=== PATIENT | female | born 1955 | race Caucasian/White ===

== ENCOUNTER → 2019-04-17 10:02 | Outpatient (CLI) | payer MEDICARE, SELFPAY ==
--- NOTE | 2019-04-17 | DI.MRI.S_ITS ---
PROCEDURE: MR LUMBAR SPINE WO CON INDICATIONS: Polyneuropathy, unspecified TECHNIQUE: Noncontrast sagittal T1 spin echo and T2 fast echo, sagittal STIR, axial T1 and T2 fast spin echo through the lumbar spine. In cases with scoliosis, additional coronal T2 fast spin echo may be performed. COMPARISON: None. FINDINGS: Image quality: Excellent. Alignment and Curvature: There is grade 1 anterolisthesis of L5 on S1. Bone Marrow: Marrow is of normal overall signal. No acute vertebral body compression fractures. Spinal Cord: Conus medullaris terminates at the L1-L2 level. Visualized cord demonstrates normal signal and size. Paraspinous Soft Tissues: No paravertebral masses. L1-L2: Preserved disc height. Mild disc desiccation. No central canal or foraminal stenosis. No definitive nerve root impingement. L2-L3: Preserved disc height. Mild disc desiccation and posterior lateral disc bulge. No central canal stenosis. Mild bilateral foraminal stenosis No definitive nerve root impingement. L3-L4: Preserved disc height. Mild disc desiccation and posterior lateral disc bulge. No central canal stenosis. Mild bilateral foraminal stenosis No definitive nerve root impingement. L4-L5: Preserved disc height. Mild disc desiccation and posterior lateral disc bulge. Moderate bilateral facet arthropathy. No central canal stenosis. Mild left foraminal stenosis. Patent right neural foramen. No definitive nerve root impingement. L5-S1: Preserved disc height. Mild disc desiccation. Diffuse posterior disc bulge. There is a small posterior central annular fissure. Mild bilateral facet arthropathy. No central canal stenosis. Mild bilateral foraminal stenosis No definitive nerve root impingement. IMPRESSION: 1. Multilevel degenerative disc disease and facet arthropathy as described. 2. No central canal stenosis. 3. Mild foraminal stenosis at several levels as described. Dictated by: Xiomara Jurado M.D. on 04/19/2019 at 10:33 Approved by: Xiomara Jurado M.D. on 04/19/2019 at 18:51
== END ==
PROVIDERS: Visit Provider Physician Assistant
DX: M51.36 Other intervertebral disc degeneration, lumbar region (principal); M51.37 Other intervertebral disc degeneration, lumbosacral region; M47.817 Spondylosis without myelopathy or radiculopathy, lumbosacral region; M48.061 Spinal stenosis, lumbar region without neurogenic claudication; M48.07 Spinal stenosis, lumbosacral region; M47.816 Spondylosis without myelopathy or radiculopathy, lumbar region; G62.9 Polyneuropathy, unspecified; M79.18 Myalgia, other site; R20.2 Paresthesia of skin
CPT/HCPCS: 72148

== ENCOUNTER → 2019-05-28 10:23 | Outpatient (CLI) | payer MEDICARE, MEDICAID, SELFPAY ==
--- NOTE | 2019-05-28 | DI.US.S_ITS ---
PROCEDURE: US PERIPH VENOUS LOW EXTREM RT INDICATIONS: RIGHT LEG PAIN TECHNIQUE: Real-time imaging, as well as color and pulse Doppler interrogation, were performed of the lower extremity deep veins from the inguinal ligament to the popliteal fossa. COMPARISON: None. FINDINGS: The common femoral, femoral and popliteal veins are normally compressible, and free of intraluminal thrombus. Color and pulse Doppler demonstrate normal phasic intraluminal flow. There is normal augmentation response to distal compression maneuver. IMPRESSION: No evidence of right lower extremity deep vein thrombosis. Dictated by: Donnie Dobbs M.D. on 05/28/2019 at 11:33 Approved by: Donnie Dobbs M.D. on 05/28/2019 at 11:33
== END ==
PROVIDERS: Visit Provider Student in an Organized Health Care Education/Training Program
DX: M79.604 Pain in right leg (principal)
CPT/HCPCS: 93971

== ENCOUNTER → 2019-05-31 14:31 | Outpatient (CLI) | payer MEDICARE, MEDICAID, SELFPAY ==
--- NOTE | 2019-05-31 | DI.US.S_ITS ---
PROCEDURE: US ARTERIAL DUPLEX LE BI INDICATIONS: RIGHT LEG PAIN TECHNIQUE: Color and pulse Doppler interrogation was performed of both lower extremity arterial systems, with image documentation. COMPARISON: None. FINDINGS: Right lower extremity: Common femoral artery: 84 cm/sec, with monophasic low resistance waveforms. Deep femoral artery: 156 cm/sec, with monophasic low resistance flow. Proximal superficial femoral artery: 73 cm/sec, with monophasic low resistance flow. Mid superficial femoral artery: 70 cm/sec, with monophasic low resistance flow. Distal superficial femoral artery: 29 cm/sec, with tardus parvus flow. Popliteal artery: 29-33 cm/sec, with tardus parvus flow. Posterior tibial artery: 17 cm/sec and 8 cm/s distally, with tardus parvus flow in the mid and distal segments. Anterior tibial artery/dorsalis pedis: 28 cm/s proximally and 4 cm/s distally cm/sec, with tardus parvus flow in the mid segment and minimal phasicity distally. Dorsalis pedis: 7 cm/s with tardus parvus flow. Melissa-scale imaging description: There is extensive atherosclerotic plaque. Left lower extremity: Common femoral artery: 63 cm/sec, with monophasic low resistance flow. Deep femoral artery: 109 cm/sec, with monophasic low resistance flow. Proximal superficial femoral artery: 55 cm/sec, with monophasic low resistance flow. Mid superficial femoral artery: 61 cm/sec, with monophasic low resistance flow. Distal superficial femoral artery: 138 cm/sec, with monophasic low resistance flow. Popliteal artery: 39 cm/sec, with tardus parvus flow. Posterior tibial artery: 18 cm/sec proximally and 16 cm/s distally, with tardus parvus flow. Anterior tibial artery/dorsalis pedis: 20 cm/s proximally with tardus parvus flow, 6 cm/s at its proximal mid segment, and no flow visualized distally. Dorsalis pedis: No flow visualized. Melissa-scale imaging description: There is scattered atherosclerotic plaque. IMPRESSION: 1. Bilateral low velocity low resistance monophasic flow demonstrated in the lower extremities compatible with inflow disease in the iliac arteries. 2. Focal increased velocity within the distal left superficial femoral artery compatible with a high-grade stenosis. 3. 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 4. Bilateral post stenotic waveforms demonstrated beginning in the distal right superficial femoral artery and in the left popliteal artery. Dictated by: Elliot Choudhury M.D. on 05/31/2019 at 18:10 Approved by: Elliot Choudhury M.D. on 05/31/2019 at 18:23
== END ==
PROVIDERS: Visit Provider Student in an Organized Health Care Education/Training Program
DX: M79.604 Pain in right leg (principal); I70.203 Unspecified atherosclerosis of native arteries of extremities, bilateral legs
CPT/HCPCS: 93925

== ENCOUNTER 2019-10-06 19:52 | Emergency (ER) | payer MEDICARE, MEDICAID, SELFPAY ==
--- NOTE | 2019-10-06 19:58 | ED.ABDPAIN ---
HPI - Abdominal Pain General Chief Complaint: Abdominal Pain Stated Complaint: Abd pain, n/v Time Seen by Provider: 10/06/19 19:58 Source: patient, family and EMS Mode of arrival: EMS Limitations: no limitations History of Present Illness HPI narrative: This is a 64-year-old female comes to the emergency department with complaint of epigastric mid abdominal pain starting at 2:00 a.m. today. Patient states it's been intermittent. She states it doesn't seem to be associated with anything in particular but she has had multiple episodes of emesis initially water followed by what she describes as bile and yellow in color. She has also had about 5 or 6 episodes of diarrhea. Patient denies any radiation to her back. She denies any lower abdominal discomfort. Patient has not had any fevers. She has had a dry cough for about 1 month status post CEA. Patient also had an aortic iliac bypass in June. And at that time during her evaluation was found she had stenosis of her carotid and had that surgery in August. Patient felt like something was maybe ripping or tearing. She states the pain has resolved since. She did receive Zofran EN route with EMS but no additional medication. She denies any urinary symptoms no frequency, dysuria urgency. She denies any shortness of breath. She states her cough has not been productive. She has a history of hypertension, dyslipidemia, diabetes on metformin and glipizide.retinal stroke,no prior MIs or cardiac history. Patient was on Plavix this was stopped 1 week ago by her surgeon. Related Data Allergies Allergy/AdvReac Type Severity Reaction Status Date / Time No Known Drug Allergies Allergy Verified 10/06/19 20:47 Review of Systems Review of Systems ROS Unobtainable: All systems reviewed & are unremarkable except as noted in HPI and below Patient History Social History Smoking Status: Former smoker (Quit 7 years ago) Smoking Status: Former smoker (Quit 7 years ago) Substance Use Type: does not use Exam Narrative Exam Narrative: GENERAL: Alert and oriented x three, well-nourished female in mild distress. HEENT: Head normocephalic, atraumatic, EOMI, pupils reactive, face symmetric, moist mucous membranes NECK: Supple, full range of motion, patient has healing incision on the left neck consistent with prior left carotid endarterectomy. Is clean and dry and intact without any signs of dehiscence or infection. CARDIOVASCULAR: Regular rate and rhythm without murmurs, rubs or gallops. RESPIRATORY: Breath sounds equal bilaterally, no wheezes rales or rhonchi. ABDOMEN: Soft, nontender to palpation. Normoactive bowel sounds all 4 quadrants. No guarding or rebound, rigidity, no mass. Patient has midline incision running through the umbilicus. Appears to have healed appropriately. Patient does have some hardening of the tissue around umbilicus which feels consistent with scar tissue. It is nontender to touch. : No CVA tenderness EXTREMITIES: Normal range of motion, no clubbing or edema. Neurovascularly intact NEUROLOGICAL: Cranial nerves II through XII grossly intact. Moving all extremities SKIN: Warm, dry, no petechiae, no rashes or lesions. Initial Vital Signs Initial Vital Signs: Vital Signs Temperature 98.5 F 10/06/19 20:00 Pulse Rate 81 10/06/19 20:00 Respiratory Rate 15 10/06/19 20:00 Blood Pressure 139/78 10/06/19 20:00 Pulse Oximetry 100 10/06/19 20:00 Course Orders Ordered: ED Orders 10/06/19 20:11 CT angio chest abdomen pelvis Stat 10/06/19 20:15 EKG-12 Lead Stat 10/06/19 20:17 Complete Blood Count AUTO DIFF Stat Comprehensive Metabolic Panel Stat Lipase Stat Troponin & CK Cardiac Panel Stat Type and Screen Stat Discontinued Medications Hydrocodone Bitart/Acetaminophen (Vicodin 5/325 Prepack) 1 bottle MISC SEEINSTR ONE Stop: 10/06/19 22:42 Last Admin: 10/06/19 22:57 Dose: 1 bottle Documented by: DEMOND Sodium Chloride (Normal Saline 0.9%) 1,000 mls @ 150 mls/hr IV CONT JEWELL Last Infusion: 10/06/19 23:34 Dose: 0 mls/hr Documented by: Admin: 10/06/19 20:24 Dose: 150 mls/hr Documented by: BRODY Ondansetron HCl (Zofran) 4 mg IV NOW ONE Stop: 10/06/19 20:43 Last Admin: 10/06/19 20:46 Dose: 4 mg Documented by: DEMOND Ondansetron HCl (Zofran Odt Prepack) 1 bottle MISC SEEINSTR ONE Stop: 10/06/19 22:42 Last Admin: 10/06/19 22:57 Dose: 1 bottle Documented by: DEMOND Vital Signs Vital signs: Vital Signs - 8 hr 10/06/19 20:00 10/06/19 21:17 10/06/19 22:07 Temperature 98.5 F Pulse Rate 81 93 H 92 H Respiratory Rate 15 19 18 Blood Pressure 139/78 Blood Pressure [Right Arm] 146/60 H 151/74 H Pulse Oximetry 100 97 92 10/06/19 22:56 Temperature Pulse Rate 98 H Respiratory Rate 18 Blood Pressure Blood Pressure [Right Arm] 142/60 H Pulse Oximetry 94 MDM - Abdominal Pain Lab Data Attestation: I reviewed the patient's lab results. Result diagrams: 10/06/19 20:17 10/06/19 20:17 Labs: Lab Results 10/06/19 10/06/19 10/06/19 Range/Units 20:17 20:17 20:17 WBC 14.7 H (4.5-11.0) X10^3/uL RBC 4.75 (4.0-5.2) X10^6/uL Hgb 13.0 (12.0-16.0) g/dL Hct 39.3 (36-46) % MCV 82.7 (80-100) fL MCH 27.4 (26-34) PG MCHC 33.1 (30-36) % RDW 15.3 H (11.6-14.8) % Plt Count 301 (150-400) X10^3/uL Neut % (Auto) 93.2 H (50-75) % Lymph % (Auto) 3.4 L (25-40) % [place] % (Auto) 3.1 (3-14) % Eos % (Auto) 0.1 L (2-4) % Baso % (Auto) 0.2 (0-2) % Neut # (Auto) 98375 H (8333-7749) /uL Lymph # (Auto) 500 L (2009-4786) /uL [place] # (Auto) 500 (0-900) /uL Eos # (Auto) 0 (0-450) /uL Baso # (Auto) 0 (0-100) /uL Sodium (137-145) mmol/L Potassium (3.4-5.1) mmol/L Chloride (98-107) mmol/L Carbon Dioxide (22-32) mmol/L BUN (7-17) mg/dL Creatinine (0.52-1.04) mg/dL Estimated GFR (>60) mL/min BUN/Creatinine Ratio (6-22) Glucose (80-110) mg/dL Calcium (8.4-10.2) mg/dL Total Bilirubin (0.2-1.3) mg/dL AST (14-36) IU/L ALT (<35) IU/L Alkaline Phosphatase (38-126) U/L Total Creatine Kinase 62 (30-135) U/L CK-MB (CK-2) TNP CK-MB (CK-2) Rel Index TNP Troponin I < 0.012 (0.01-0.034) ng/mL Total Protein (6.3-8.2) g/dL Albumin (3.5-5.0) g/dL Globulin (1.7-4.1) g/dL Albumin/Globulin Ratio (1.0-2.8) Lipase (23-300) U/L Blood Type O Positive Antibody Screen Negative 10/06/19 Range/Units 20:17 WBC (4.5-11.0) X10^3/uL RBC (4.0-5.2) X10^6/uL Hgb (12.0-16.0) g/dL Hct (36-46) % MCV (80-100) fL MCH (26-34) PG MCHC (30-36) % RDW (11.6-14.8) % Plt Count (150-400) X10^3/uL Neut % (Auto) (50-75) % Lymph % (Auto) (25-40) % [place] % (Auto) (3-14) % Eos % (Auto) (2-4) % Baso % (Auto) (0-2) % Neut # (Auto) (7194-3684) /uL Lymph # (Auto) (5679-0931) /uL [place] # (Auto) (0-900) /uL Eos # (Auto) (0-450) /uL Baso # (Auto) (0-100) /uL Sodium 137 (137-145) mmol/L Potassium 4.8 (3.4-5.1) mmol/L Chloride 97 L (98-107) mmol/L Carbon Dioxide 27 (22-32) mmol/L BUN 28 H (7-17) mg/dL Creatinine 0.70 (0.52-1.04) mg/dL Estimated GFR > 60.0 (>60) mL/min BUN/Creatinine Ratio 40.0 H (6-22) Glucose 280 H (80-110) mg/dL Calcium 10.1 (8.4-10.2) mg/dL Total Bilirubin 0.7 (0.2-1.3) mg/dL AST 25 (14-36) IU/L ALT 21 (<35) IU/L Alkaline Phosphatase 110 (38-126) U/L Total Creatine Kinase (30-135) U/L CK-MB (CK-2) CK-MB (CK-2) Rel Index Troponin I (0.01-0.034) ng/mL Total Protein 7.8 (6.3-8.2) g/dL Albumin 4.5 (3.5-5.0) g/dL Globulin 3.3 (1.7-4.1) g/dL Albumin/Globulin Ratio 1.4 (1.0-2.8) Lipase 60 (23-300) U/L Blood Type Antibody Screen Point of care testing: Urine Dip Bedside Urine Glucose 250 mg/dl Bedside Urine Bilirubin - Negative Bedside Urine Ketone + 15 Urine Specific [place] 1.015 Bedside Urine pH 6.0 Bedside Urine Protein +/- 15 Bedside Urine Urobilinogen - Negative Bedside Urine Nitrite - Negative Bedside Urine Leukocytes - Negative Esterase Imaging Data CT scan - abdomen/pelvis: Radiologist's Impression: [place] [address] CT Scan Report Signed Patient: Tarah Randolph#: [id number] : 3Acct:[id number] Age/Sex: 64 / FDate of Service: 10/06/19 Loc: ED Accession Number: [id number] Procedure: CT angio chest abdomen pelvis Ordering Provider: Thea Zimmer D.O. PROCEDURE: CT ANGIO CHEST ABDOMEN PELVIS INDICATIONS: epigastric/abd pain, v/d, had aortoilliac bypass Oct TECHNIQUE: Precontrast 5 mm thick sections acquired from the lung apices to the iliac crests. After the administration of intravenous contrast, 2.5 mm thick sections again acquired from the lung apices to the iliac crests. Maximum intensity projection (MIP) oblique sagittal and coronal reformats were then acquired. For radiation dose reduction, the following was used: automated exposure control. COMPARISON: None. FINDINGS: Image quality: Excellent. AORTA: Patient is status post prior aorta iliac bypass graft placement. There is occlusion of the [place] infrarenal abdominal aorta with patent aortobiiliac stent. Mild to moderate amount of atherosclerotic calcifications are noted in thoracic and abdominal aorta. There is no thoracic or upper abdominal aortic aneurysm or dissection. No contrast extravasation is seen. Normal contrast opacification of bilateral external iliac arteries and femoral arteries are seen. CHEST: Lungs and pleura: No acute airspace opacities. No pleural effusions or pneumothorax. Central and peripheral airways are patent and normal in caliber. Mediastinum: Heart size is enlarged. No pericardial effusion. No mediastinal or hilar adenopathy by size criteria. Central pulmonary arteries are normal in size. Esophagus is normal in caliber. There is a small hiatal hernias. Bones and chest wall: No axillary adenopathy by size criteria. Thyroid gland is within normal limits. No suspicious bony lesions. No vertebral body compression fractures. ABDOMEN: Vasculature: Celiac trunk and mesenteric arteries are patent. Renal arteries are also patent. Solid organs: Liver is normal in size and enhancement. Gallbladder is within normal limits. Biliary system is non dilated. Pancreas enhances normally. Spleen is normal in size and enhancement. No adrenal nodules. Both kidneys are normal in size and enhancement, without hydronephrosis. Anterior cortical thinning in upper to midpole right kidney is seen likely represent prior infarction or injury. Peritoneum and bowel: No free fluid or air. There is no bowel obstruction. Mild proximal to mid small bowel wall thickening is noted. Distal small bowel loops and colonic loops are normal in wall thickness. Nodes and vessels: No retroperitoneal or mesenteric adenopathy by size criteria. Inferior vena cava is normal in morphology. Miscellaneous: No ventral hernias. PELVIS: Genitourinary: Bladder wall thickness is normal. Miscellaneous: No inguinal hernias or adenopathy. No ventral hernias. Bones: No suspicious bony lesions. No vertebral body compression fractures. Degenerative disc disease throughout thoracic and lumbar spine is seen. IMPRESSION: 1. Patient is status post aortoiliac bypass graft placement with occlusion of [place] mid to distal abdominal aorta and patent aortoiliac graft. No aortic aneurysm or dissection. Moderate amount of atherosclerotic calcifications throughout thoracic and abdominal aorta is seen. No hemodynamically significant stenosis are noted in celiac axis, superior and inferior mesenteric arteries and bilateral renal arteries. 2. Bilateral lungs are clear. 3. Wall thickening involving proximal to mid small bowel loops which may represent infectious or inflammatory enteritis. No bowel obstruction. No free fluid or free air. Dictated by: Maksim Murphy M.D. on 10/06/2019 at 21:32 Approved by: Maksim Murphy M.D. on 10/06/2019 at 21:47 ECG Data Attestation: I personally reviewed and interpreted this ECG as follows: Prior ECG tracings: not available for review Interpretation: Sinus rhythm rate of 76 P are 143 QRS 89 and QTC of 426. No ST changes appreciated. Patient has no prior EKG available for comparison. MDM Narrative Medical decision making narrative: Patient has a leukocytosis of 14.7, with left shift. Chemistry shows chloride 97, BUN of 28 and a glucose of 280, troponin is negative. Abdominal labs are normal. CT angiography shows wall thickening of proximal to mid small bowel which could be infectious or inflammatory enteritis with no signs of bowel obstruction and no free fluid or air. Patient has aortic iliac bypass graft placement and patent graft. No aneurysm or dissection noted. Patient has moderate amount of calcification throughout. No hemodynamically significant stenosis noted. Patient had a 2nd dose of Zofran in the department but otherwise has been doing well. Discussed findings today. Patient is feeling much better she has not had any further diarrhea or vomiting in the department. We did discuss sending home with a short course of narcotic pain medication if needed as well as Zofran. And strict return precautions. Patient did give a urine, shows glucose, ketones and protein. Anion gap is 13 with no signs of DKA or HONC. Patient comfortable with the plan and feeling much better. Discharge Plan Departure Patient Disposition: Home Clinical Impression: Enteritis Discharge Date/Time: 10/06/19 23:35 Instructions: DI for Enteritis Activity Restrictions/Additional Instructions: Follow up with your primary care physician in the next 2-3 days for recheck. Your imaging shows thickening of the small bowel or enteritis. You may take tylenol instead of but not with pain medication. Take pain medication as prescribed, this medication can make you nauseated so I would recommend taking Zofran 1 tablet 20 minutes prior to pain medication. Pain medication can make you sleepy do not drive, perform hazardous activities or make any major decisions while taking this medication. Return to the ER for fevers greater 100.4 F, rapidly worsening pain, persistent vomiting, lightheadedness or passing-out, black or bloody stools or other new or concerning symptoms.
[2019-10-06 20:00] VITALS: BP 139/78; PULSE 81; RESP 15; TEMP 36.9; O2SAT 100; BMI 25.7
--- NOTE | 2019-10-06 20:11 | DI.CT.S_ITS ---
PROCEDURE: CT ANGIO CHEST ABDOMEN PELVIS INDICATIONS: epigastric/abd pain, v/d, had aortoilliac bypass Oct TECHNIQUE: Precontrast 5 mm thick sections acquired from the lung apices to the iliac crests. After the administration of intravenous contrast, 2.5 mm thick sections again acquired from the lung apices to the iliac crests. Maximum intensity projection (MIP) oblique sagittal and coronal reformats were then acquired. For radiation dose reduction, the following was used: automated exposure control. COMPARISON: None. FINDINGS: Image quality: Excellent. AORTA: Patient is status post prior aorta iliac bypass graft placement. There is occlusion of the [place] infrarenal abdominal aorta with patent aortobiiliac stent. Mild to moderate amount of atherosclerotic calcifications are noted in thoracic and abdominal aorta. There is no thoracic or upper abdominal aortic aneurysm or dissection. No contrast extravasation is seen. Normal contrast opacification of bilateral external iliac arteries and femoral arteries are seen. CHEST: Lungs and pleura: No acute airspace opacities. No pleural effusions or pneumothorax. Central and peripheral airways are patent and normal in caliber. Mediastinum: Heart size is enlarged. No pericardial effusion. No mediastinal or hilar adenopathy by size criteria. Central pulmonary arteries are normal in size. Esophagus is normal in caliber. There is a small hiatal hernias. Bones and chest wall: No axillary adenopathy by size criteria. Thyroid gland is within normal limits. No suspicious bony lesions. No vertebral body compression fractures. ABDOMEN: Vasculature: Celiac trunk and mesenteric arteries are patent. Renal arteries are also patent. Solid organs: Liver is normal in size and enhancement. Gallbladder is within normal limits. Biliary system is non dilated. Pancreas enhances normally. Spleen is normal in size and enhancement. No adrenal nodules. Both kidneys are normal in size and enhancement, without hydronephrosis. Anterior cortical thinning in upper to midpole right kidney is seen likely represent prior infarction or injury. Peritoneum and bowel: No free fluid or air. There is no bowel obstruction. Mild proximal to mid small bowel wall thickening is noted. Distal small bowel loops and colonic loops are normal in wall thickness. Nodes and vessels: No retroperitoneal or mesenteric adenopathy by size criteria. Inferior vena cava is normal in morphology. Miscellaneous: No ventral hernias. PELVIS: Genitourinary: Bladder wall thickness is normal. Miscellaneous: No inguinal hernias or adenopathy. No ventral hernias. Bones: No suspicious bony lesions. No vertebral body compression fractures. Degenerative disc disease throughout thoracic and lumbar spine is seen. IMPRESSION: 1. Patient is status post aortoiliac bypass graft placement with occlusion of [place] mid to distal abdominal aorta and patent aortoiliac graft. No aortic aneurysm or dissection. Moderate amount of atherosclerotic calcifications throughout thoracic and abdominal aorta is seen. No hemodynamically significant stenosis are noted in celiac axis, superior and inferior mesenteric arteries and bilateral renal arteries. 2. Bilateral lungs are clear. 3. Wall thickening involving proximal to mid small bowel loops which may represent infectious or inflammatory enteritis. No bowel obstruction. No free fluid or free air. Dictated by: Maksim Murphy M.D. on 10/06/2019 at 21:32 Approved by: Maksim Murphy M.D. on 10/06/2019 at 21:47
[2019-10-06] MEDS: SODIUM CHLORIDE 0.9% 1,000 ML 150 ML IV (20:24)
[2019-10-06 20:26] LABS: Add Manual Diff / Slide Review NO; Basophils Absolute Auto 0 /uL (0-100); Basophils Percent Auto 0.2 % (0-2); Eosinophils Absolute Auto 0 /uL (0-450); Eosinophils Percent Auto 0.1 % (2-4); Hematocrit 39.3 % (36-46); Lymphocytes Absolute Auto 500 /uL (1100-4500); Lymphocytes Percent Auto 3.4 % (25-40); Mean Corpuscular HGB Conc 33.1 % (30-36); Mean Corpuscular Hemoglobin 27.4 PG (26-34); Mean Corpuscular Volume 82.7 fL (80-100); Monocytes Absolute Auto 500 /uL (0-900); Monocytes Percent Auto 3.1 % (3-14); Neutrophils Absolute Auto 13700 /uL (1500-7000); Neutrophils Percent Auto 93.2 % (50-75); Platelet Count 301 X10^3/uL (150-400); Red Blood Cell Count 4.75 X10^6/uL (4.0-5.2); Red Cell Distribution Width 15.3 % (11.6-14.8); White Blood Cell Count 14.7 X10^3/uL (4.5-11.0)
[2019-10-06 20:30] LABS: Creatine Kinase 62 U/L (30-135)
[2019-10-06 20:31] LABS: Alanine Aminotransferase 21 IU/L (<35); Albumin 4.5 g/dL (3.5-5.0); Albumin Globulin Ratio 1.4 (1.0-2.8); Alkaline Phosphatase 110 U/L (38-126); Aspartate Aminotransferase 25 IU/L (14-36); Bilirubin Total 0.7 mg/dL (0.2-1.3); Blood Urea Nitrogen 28 mg/dL (7-17); Calcium 10.1 mg/dL (8.4-10.2); Carbon Dioxide 27 mmol/L (22-32); Chloride 97 mmol/L (98-107); Estimated Glomerular Filt Rate > 60.0 mL/min (>60); Globulin 3.3 g/dL (1.7-4.1); Glucose 280 mg/dL (80-110); HEMOLYSIS 18 (0-50); Lipase 60 U/L (23-300); Potassium 4.8 mmol/L (3.4-5.1); Sodium 137 mmol/L (137-145); Total Protein 7.8 g/dL (6.3-8.2)
[2019-10-06 20:43] LABS: Troponin I < 0.012 ng/mL (0.01-0.034)
[2019-10-06] MEDS: ONDANSETRON 4 MG/2 ML INJ IV (20:46)
[2019-10-06 21:17] VITALS: BP 146/60; PULSE 93; RESP 19; O2SAT 97
[2019-10-06 22:07] VITALS: BP 151/74; PULSE 92; RESP 18; O2SAT 92
[2019-10-06 22:56] VITALS: BP 142/60; PULSE 98; RESP 18; O2SAT 94
[2019-10-06] MEDS: ONDANSETRON 4 MG ODT PREPACK 1 BOTTLE MISC (22:57)
[2019-10-06] MEDS: HYDROCODONE/ACET 5/325 PREPACK 1 BOTTLE MISC (22:57)
== END 2019-10-06 23:35 | disposition home or self-care (01) ==
PROVIDERS: Emergency Provider Emergency Medicine
DX: K52.9 Noninfective gastroenteritis and colitis, unspecified (principal); R10.13 Epigastric pain
CPT/HCPCS: 36415; 71275; 74174; 80053; 81003; 82550; 83690; 84484; 85025; 86850; 86900; 86901; 93005; 96361; 96374; 99284; 99285; J2405; Q9967

== ENCOUNTER 2025-04-01 21:59 | Inpatient (IN) | payer MEDICARE, MEDICAID, SELFPAY ==
[2025-04-01] VITALS (8 sets, daily range): BP systolic 138–225; BP diastolic 87–106; PULSE 102–118; RESP 16–46; TEMP 36.4; O2SAT 96–99
--- NOTE | 2025-04-01 | DI.CT.S_ITS ---
PROCEDURE: CT STROKE INDICATIONS: sTROKE LIKE SYMPTOMS TECHNIQUE: Noncontrast 4.5 mm thick angled axial sections acquired from the foramen magnum to the vertex, with coronal reformats. For radiation dose reduction, the following was used: automated exposure control, adjustment of mA and/or kV according to patient size. COMPARISON: None. FINDINGS: Image quality: Diagnostic. CSF spaces: Basal cisterns are patent. No extra-axial fluid collections. The ventricles are symmetric in size and shape. Brain: 3 mm linear hyperdensity along the anterior falx. No priors. It is seen on series 2, image 28. . There is cerebral volume loss, with resultant ventricular and sulcal prominence. There are periventricular and deep white matter chronic small vessel ischemic changes. There is intracranial internal carotid artery atherosclerosis. Skull and face: Calvarium and visualized facial bones appear intact, without suspicious lesions. Sinuses: Visualized sinuses and mastoids are clear. IMPRESSION: 3 mm hyperdensity along the anterior falx as above. This could represent calcification. It is too small to definitively characterize as hemorrhage versus calcification. 4 hour interval follow-up may be obtained as indicated. The above findings were discussed with Dr. Larry Segundo on 04/01/2025 at 10:16 p.m.. This study fulfills neurological imaging criteria for inclusion or exclusion of acute stroke therapies based on available published neurological guidelines. Dictated by: Anum Yusuf M.D. on 04/01/2025 at 22:14 Approved by: Anum Yusuf M.D. on 04/01/2025 at 22:17
--- NOTE | 2025-04-01 | DI.CT.S_ITS ---
PROCEDURE: CT ANGIO HEAD AND NECK INDICATIONS: sTROKE LIKE SYMPTOMS TECHNIQUE: After the administration of intravenous contrast, 1 mm thick sections acquired from the aortic arch through the [place] of [place]. 3-dimensional fponuzk-uznvbudta-fqqzxkigef (MIP) and/or volume rendering reformats were acquired of the central intracranial vasculature and neck separately. For radiation dose reduction, the following was used: automated exposure control, adjustment of mA and/or kV according to patient size. COMPARISON: [facility], CT, CT STROKE, 04/01/2025, 22:04. FINDINGS: Image quality: Motion is present multiple portions the. Cerebral CT Angiogram: Internal carotid arteries: No acute findings. Intracranial ICA are patent with no significant stenosis. No occlusion. No aneurysm. Anterior cerebral arteries: Unremarkable. No significant stenosis. No occlusion. No aneurysm. Middle cerebral arteries: Unremarkable. No significant stenosis. No occlusion. No aneurysm. Posterior cerebral arteries: Unremarkable. No significant stenosis. No occlusion. No aneurysm. Basilar artery: Unremarkable. No significant stenosis. No occlusion. No aneurysm. Vertebral arteries: Unremarkable as visualized. Dural venous sinuses: Unremarkable given phase of enhancement. Other: Arterial phase appearance of the brain parenchyma is unremarkable. Neck CT Angiogram: Internal carotid arteries: Significantly limited secondary to motion. Common carotid arteries: Significantly limited secondary to motion. External carotid arteries: Significantly limited secondary to motion. Vertebral arteries: Significantly limited secondary to motion. Aortic Arch and Mediastinum: Partially visualized aortic arch unremarkable without evidence of aneurysm. Origins of the great vessels unremarkable. Other: Arterial phase soft tissues of the neck and chest are unremarkable. IMPRESSION: No significant intracranial arterial abnormality is seen. Significantly limited motion within the neck vasculature as described above. Areas of abnormality cannot be excluded. Any quantitative measurements of stenosis were performed using NASCET criteria. Dictated by: Anum Yusuf M.D. on 04/01/2025 at 22:44 Approved by: Anum Yusuf M.D. on 04/01/2025 at 22:47
--- NOTE | 2025-04-01 22:00 | ED.AMS ---
HPI - Altered Mental Status General Chief Complaint: Neuro Symptoms/Deficit Stated Complaint: code stroke History of Present Illness HPI narrative: 70-year-old female history of type 2 diabetes was walking earlier tonight with her when she fell into the bushes found to be hypertensive and tachycardic along with the elevated blood sugar in the 600- 700s with a lateral gaze to the right brought in via EMS with concerns for DKA versus stroke. Patient currently has altered mental status unable to obtain further information at this time. Related Data Allergies Allergy/AdvReac Type Severity Reaction Status Date / Time No Known Drug Allergies Allergy Verified 10/06/19 20:47 Review of Systems Review of Systems ROS Unobtainable: Unobtainable due to mental status/LOC Exam Narrative Exam Narrative: GENERAL: [70] year old patient appears stated age. Well-developed patient, in mild distress. HEAD: Atraumatic. Normocephalic. EYES: Pupils equal round and reactive. Extraocular motions intact. No scleral icterus. No injection or drainage. ENT: Nose without bleeding, purulent drainage. Throat without erythema, tonsillar hypertrophy or exudate. Airway patent. NECK: Trachea midline. Non tender CARDIOVASCULAR: Regular rate and rhythm without murmurs, gallops, or rubs. RESPIRATORY: Clear to auscultation. Breath sounds equal bilaterally. No wheezes, rales, or rhonchi. GASTROINTESTINAL: Abdomen soft, non-tender, nondistended. EXTREMITIES: No edema or joint tenderness. BACK: Nontender without deformity or crepitance. No flank tenderness. NEURO: AOx1. Patient had a lateral horizontal gaze with her eyes initially to the right with the neck rotate tilted to the right, spontaneous moving arms and legs in all direction. SKIN: No rash or erythema of visible areas Course Orders Ordered: ED Orders 04/01/25 22:30 Ketones (Beta-Hydroxybutyrate) Stat Venous Blood Gas STAT Sodium Chloride (Normal Saline 0.9%) 500 mls @ 1,000 mls/hr IV BOLUS ONE Stop: 04/01/25 22:59 Discontinued Medications Insulin Human Regular (Insulin Regular 100 Unit/Ml 3 Ml Vial) 10 unit IV NOW ONE Stop: 04/01/25 22:31 MDM - Altered Mental Status Lab Data Labs: Lab Results 04/01/25 Range/Units 22:15 POC Whole Bld Glucose > 500 H* (70-99) mg/dL Imaging Data CT scan - head: Radiologist's Impression: [address] [address] [address] Scan Report Signed Patient: Jenelle Randolph MR#: [id number] : 1955 Acct:[id number] Age/Sex: 70 / F Date of Service: 04/01/25 Loc: ED Accession Number: [id number] Procedure: CT Stroke Ordering Provider: Larry Segundo D.O. PROCEDURE: CT STROKE INDICATIONS: sTROKE LIKE SYMPTOMS TECHNIQUE: Noncontrast 4.5 mm thick angled axial sections acquired from the foramen magnum to the vertex, with coronal reformats. For radiation dose reduction, the following was used: automated exposure control, adjustment of mA and/or kV according to patient size. COMPARISON: None. FINDINGS: Image quality: Diagnostic. CSF spaces: Basal cisterns are patent. No extra-axial fluid collections. The ventricles are symmetric in size and shape. Brain: 3 mm linear hyperdensity along the anterior falx. No priors. It is seen on series 2, image 28. . There is cerebral volume loss, with resultant ventricular and sulcal prominence. There are periventricular and deep white matter chronic small vessel ischemic changes. There is intracranial internal carotid artery atherosclerosis. Skull and face: Calvarium and visualized facial bones appear intact, without suspicious lesions. Sinuses: Visualized sinuses and mastoids are clear. IMPRESSION: 3 mm hyperdensity along the anterior falx as above. This could represent calcification. It is too small to definitively characterize as hemorrhage versus calcification. 4 hour interval follow-up may be obtained as indicated. The above findings were discussed with Dr. Larry Segundo on 04/01/2025 at 10:[address] - cervical spine: Radiologist's Impression: [address] [address] [address] Scan Report Signed Patient: Jenelle Randolph MR#: [id number] : 1955 Acct:[id number] Age/Sex: 70 / F Date of Service: 04/01/25 Loc: ED Accession Number: [id number] Procedure: CT angio head and neck Ordering Provider: Lrary Segundo D.O. PROCEDURE: CT ANGIO HEAD AND NECK INDICATIONS: sTROKE LIKE SYMPTOMS TECHNIQUE: After the administration of intravenous contrast, 1 mm thick sections acquired from the aortic arch through the [place] of [place]. 3-dimensional zflhbpm-gzhaatlzz-gcveenmirw (MIP) and/or volume rendering reformats were acquired of the central intracranial vasculature and neck separately. For radiation dose reduction, the following was used: automated exposure control, adjustment of mA and/or kV according to patient size. COMPARISON: [facility], CT, CT STROKE, 04/01/2025, 22:04. FINDINGS: Image quality: Motion is present multiple portions the. Cerebral CT Angiogram: Internal carotid arteries: No acute findings. Intracranial ICA are patent with no significant stenosis. No occlusion. No aneurysm. Anterior cerebral arteries: Unremarkable. No significant stenosis. No occlusion. No aneurysm. Middle cerebral arteries: Unremarkable. No significant stenosis. No occlusion. No aneurysm. Posterior cerebral arteries: Unremarkable. No significant stenosis. No occlusion. No aneurysm. Basilar artery: Unremarkable. No significant stenosis. No occlusion. No aneurysm. Vertebral arteries: Unremarkable as visualized. Dural venous sinuses: Unremarkable given phase of enhancement. Other: Arterial phase appearance of the brain parenchyma is unremarkable. Neck CT Angiogram: Internal carotid arteries: Significantly limited secondary to motion. Common carotid arteries: Significantly limited secondary to motion. External carotid arteries: Significantly limited secondary to motion. Vertebral arteries: Significantly limited secondary to motion. Aortic Arch and Mediastinum: Partially visualized aortic arch unremarkable without evidence of aneurysm. Origins of the great vessels unremarkable. Other: Arterial phase soft tissues of the neck and chest are unremarkable. IMPRESSION: No significant intracranial arterial abnormality is seen. Significantly limited motion within the neck vasculature as described above. Areas of abnormality cannot be excluded. Any quantitative measurements of stenosis were performed using NASCET criteria. MDM Narrative Medical decision making narrative: All lab work, vital signs, nurse triage note, medication list, previous ER visits, and all imaging study reviewed. Initial head CT was read as 3 mm hyperdensity along the anterior falx as above. This could represent calcification. It is too small to definitively characterize as hemorrhage versus calcification. 4 hour interval follow up may be obtained as indicated. CT head without contrast repeated at 4:00 a.m. showed no acute intracranial abnormality. CT cervical spine showed multilevel spondylotic change of the cervical spine without acute traumatic injury. CTA head and neck showed no significant intracranial arterial abnormality. CT pelvis showed more motion artifact limiting the exam and unable to adequately evaluate left pelvis and femur but patient is moving both legs in all directions with no difficulty. Initial blood work shows sodium of 130 potassium 4.0 chloride 93 BUN and at 20 CO2 of 19 creatinine 0.87. Sugar of 737 and a lactic acid of 4.9 and on repeat 3.9. Patient received 3 L bolus of normal saline, along with 4 L of normal saline with 20 mEq of KCl, 10 units of insulin regular follow up by insulin drip at this time with repeat sugar of 354. Troponin less than 0.012 and on repeat 0.048. Case discussed with Dr. Cotto who has graciously accepted the patient for inpatient admission. Discharge Plan Departure Patient Disposition: Admitted As Inpatient Clinical Impression: DKA (diabetic ketoacidosis) Qualifiers: Diabetes mellitus type: type 2 Diabetes mellitus complication detail: without coma Qualified Code(s): E11.10 - Type 2 diabetes mellitus with ketoacidosis without coma
--- NOTE | 2025-04-01 22:30 | PC.NURSE ---
upon return from CT linens changed and pt place on a purewick, pt constantly moving about on the stretcher unable to lay still but denies any c/o
--- NOTE | 2025-04-01 22:37 | EKG_ITS ---
[address] [address] Test Date: 2025-04-01 Pat Name: Jenelle Randolph Department: [facility] Room: Gender: Female [employer]: VIGNESH : 1955 Requested By: Order Number: [id number] Reading MD: Larry Eastman MD Measurements Intervals [place] Rate: 105 P: 74 [place]: 162 QRS: 35 QRSD: 86 T: 76 QT: 398 QTc: 526 Interpretive Statements Sinus tachycardia Septal infarct , age undetermined Prolonged QT Electronically Signed On 04-02-2025 8:41:21 PDT by Larry Eastman MD
--- NOTE | 2025-04-01 22:37 | DI.RAD.S_ITS ---
PROCEDURE: XR CHEST 1V INDICATIONS: chest pain TECHNIQUE: One view of the chest was acquired. COMPARISON: CT, CT ANGIO CHEST PE, 07/12/2019, 2:22. FINDINGS: Surgical changes and devices: None. Lungs and pleura: Lungs are clear. No pleural effusions or pneumothorax. Mediastinum: Mediastinal contours appear normal. Heart size is enlarged. Bones and chest wall: No suspicious bony lesions. Overlying soft tissues appear unremarkable. IMPRESSION: No acute pulmonary process. Dictated by: Anum Yusuf M.D. on 04/02/2025 at 0:08 Approved by: Anum Yusuf M.D. on 04/02/2025 at 0:08
--- NOTE | 2025-04-01 22:38 | DI.CT.S_ITS ---
PROCEDURE: CT PEL WO CON INDICATIONS: fall/trauma TECHNIQUE: Noncontrast 3 mm axial sections acquired through the bony pelvis, with coronal and sagittal reformatting. COMPARISON: [facility], CT, CT ABDOMEN PELVIS WITH CONTRAST, 08/04/2024, 11:28. FINDINGS: Image quality: Fair. Motion artifact. Bones: No acute fracture identified. No suspicious osseous lesion. Soft tissues: Excreted contrast in the right ureter. The left kidney and ureter not seen. Aortoiliac bypass. Bladder is decompressed with Levine catheter. Anteverted uterus. Upper ventral abdominal wall hernia containing a portion of the transverse colon, (3/6). Fat containing umbilical hernia. IMPRESSION: Motion artifact limits sensitivity. Consider follow-up radiographs. 1. No acute fracture identified. 2. Small ventral abdominal wall hernia containing transverse colon. This report is concordant with the overnight preliminary interpretation. Dictated by: Fletcher See M.D. on 04/02/2025 at 8:12 Approved by: Fletcher See M.D. on 04/02/2025 at 8:18
[2025-04-01 22:44] LABS: Add Manual Diff / Slide Review NO; Hematocrit 45.2 % (36-46); Hemoglobin 15.2 g/dL (12.0-16.0); Lymphocytes Absolute Auto 1900 /uL (1100-4500); Mean Corpuscular HGB Conc 33.6 % (30-36); Mean Corpuscular Hemoglobin 28.3 PG (26-34); Mean Corpuscular Volume 84.4 fL (80-100); Platelet Count 273 X10^3/uL (150-400)
[2025-04-01] MEDS: SODIUM CHLORIDE 0.9% 1,000 ML 1000 ML IV ×2 (22:49→22:52)
[2025-04-01 22:54] LABS: Ketones (Beta-Hydroxybutyrate) 0.63 mmol/L (<0.27)
[2025-04-01 22:54] LABS: Base Excess VBG 0.4 mmol/L (0-4); HCO3 VBG 24 mmol/L (24-28); Oxygen Saturation VBG 86 % (70-75); PCO2 VBG 33.4 mmHg (45-50); PO2 VBG 48 mmHg (35-45); Total CO2 VBG 22 mmol/L (24-29); pH VBG 7.46 (7.33-7.43)
--- NOTE | 2025-04-01 22:59 | PC.NURSE ---
Spoke to son gave verbal update at this time.
[2025-04-01 23:03] LABS: Alanine Aminotransferase 25 IU/L (<35); Albumin 4.6 g/dL (3.5-5.0); Albumin Globulin Ratio 1.4 (1.0-2.8); Alkaline Phosphatase 215 U/L (38-126); Blood Urea Nitrogen 20 mg/dL (7-17); Calcium 9.5 mg/dL (8.4-10.2); Carbon Dioxide 19 mmol/L (22-32); Chloride 93 mmol/L (98-107); Creatine Kinase 54 U/L (30-135); Estimated Glomerular Filt Rate > 60 mL/min (>60); Globulin 3.4 g/dL (1.7-4.1); Lipase 56 U/L (23-300); Potassium 4.0 mmol/L (3.4-5.1); Sodium 130 mmol/L (137-145); Total Protein 8.0 g/dL (6.3-8.2)
[2025-04-01] MEDS: INSULIN REGULAR 100 UNIT/ML 3 ML VIAL 10 UNIT IV (23:06)
[2025-04-01] MEDS: ACETAMINOPHEN IV 1,000 MG/100 ML VIAL 400 MG IV (23:06)
[2025-04-01 23:15] LABS: Troponin I < 0.012 ng/mL (0.01-0.034)
[2025-04-01 23:20] LABS: Procalcitonin 0.077 ng/mL (<0.5)
[2025-04-01 23:24] LABS: Glucose 737 mg/dL (70-99); HEMOLYSIS 52 (0-50); Lactate (Lactic Acid) 4.9 mmol/L (0.7-2.1)
[2025-04-01] MEDS: ONDANSETRON 4 MG/2 ML INJ IV (23:24)
--- NOTE | 2025-04-01 23:24 | DI.CT.S_ITS ---
PROCEDURE: CT CERVICAL SPINE WO CON INDICATIONS: fall trauma TECHNIQUE: Noncontrast 3 mm thick sections acquired from the skull base to the T4 level. Sagittal and coronal reformats were then constructed. For radiation dose reduction, the following was used: automated exposure control, adjustment of mA and/or kV according to patient size. COMPARISON: [facility], CT, CT ANGIO HEAD AND NECK, 04/01/2025, 22:04. FINDINGS: Image quality: Fair. Bones: No fractures or dislocations. Mild to moderate degenerative changes. Visualized superior ribs are intact. Soft tissues: Prevertebral soft tissues are normal in thickness. No paravertebral hematomas. No apical pneumothoraces. Clips at the right neck. Arterial vascular calcifications. IMPRESSION: No fracture identified. This report is concordant with the overnight preliminary interpretation. Dictated by: Fletcher See M.D. on 04/02/2025 at 8:08 Approved by: Fletcher See M.D. on 04/02/2025 at 8:11
[2025-04-01] MEDS: INSULIN DRIP PREMIX 100 UNIT/100 ML PLAST..BAG 7.29 UNIT IV (23:35)
[2025-04-02] VITALS (44 sets, daily range): BP systolic 121–210; BP diastolic 66–105; PULSE 64–114; RESP 15–38; TEMP 36.1–37.2; O2SAT 95–100; BMI 25.0
--- NOTE | 2025-04-02 | PC.NURSE ---
pt dislodged purewick moving about on the bed linens changed. pt became nauseated during bed change, and vomited rosetta 200 ml fluid, medication order obtained from Dr Segundo and medication administered for nausea, linens changed again, pt placed in a gown and new pure wick placed on pt
[2025-04-02] MEDS: METOCLOPRAMIDE 10 MG/2 ML INJ IV (00:04)
[2025-04-02 00:17] LABS: Reflexed Lactate in 2 Hours Y
[2025-04-02 01:03] LABS: Lactate 2HR (Lactic Acid Rflx) 3.9 mmol/L (0.7-2.1)
[2025-04-02 01:04] LABS: Alanine Aminotransferase 30 IU/L (<35); Albumin 4.0 g/dL (3.5-5.0); Albumin Globulin Ratio 1.3 (1.0-2.8); Alkaline Phosphatase 157 U/L (38-126); Blood Urea Nitrogen 19 mg/dL (7-17); Calcium 8.7 mg/dL (8.4-10.2); Carbon Dioxide 20 mmol/L (22-32); Chloride 105 mmol/L (98-107); Estimated Glomerular Filt Rate > 60 mL/min (>60); Globulin 3.0 g/dL (1.7-4.1); Glucose 354 mg/dL (70-99); HEMOLYSIS < 15 (0-50); Potassium 3.1 mmol/L (3.4-5.1); Sodium 138 mmol/L (137-145); Total Protein 7.0 g/dL (6.3-8.2)
--- NOTE | 2025-04-02 01:07 | DI.CT.S_ITS ---
PROCEDURE: CT HEAD/BRAIN WO CON INDICATIONS: trauma repeat per rads MD recommendation TECHNIQUE: Noncontrast 4.5 mm thick angled axial sections acquired from the foramen magnum to the vertex, with coronal and sagittal reformats. For radiation dose reduction, the following was used: automated exposure control, adjustment of mA and/or kV according to patient size. COMPARISON: [facility], CT, CT ANGIO HEAD AND NECK, 04/01/2025, 22:04. [facility], CT, CT STROKE, 04/01/2025, 22:04. FINDINGS: Image quality: Fair CSF spaces: Basal cisterns are patent. No extra-axial fluid collections. Ventricles are prominent in size. Brain: No midline shift. No intracranial mass effect or hemorrhage. No area of hypodensity in a large vascular distribution to suggest acute infarction. Periventricular hypodensity consistent with chronic microvascular ischemic change. Age-related parenchymal loss. Skull and face: Calvarium and visualized facial bones are intact, without suspicious lesions. Sinuses: Visualized sinuses and mastoids are clear. IMPRESSION: Image quality is degraded by motion artifact. No acute intracranial hemorrhage seen. This report is concordant with the overnight preliminary interpretation. Dictated by: Fletcher See M.D. on 04/02/2025 at 7:44 Approved by: Ricki Vivar M.D. on 04/15/2025 at 8:26
[2025-04-02 01:16] LABS: Troponin I 0.048 ng/mL (0.01-0.034)
[2025-04-02] MEDS: SODIUM CHLORIDE 0.9% 1,000 ML 1000 ML IV (01:34)
[2025-04-02] MEDS: KCL 20 MEQ IN NS 1,000 ML 100 MEQ IV (01:35)
--- NOTE | 2025-04-02 01:44 | PC.NURSE ---
pt continues to move about on the bed can verbalized understanding of the need to try to lay still during procedures but is unable to do so. pt denies any problems and does not verbalize why she is restless, seizure pads continue on the stretcher to help prevent injury as pt has been throwing her legs over the side rails at times, lights dimmed, warm blankets given
[2025-04-02 02:36] LABS: Culture Indicated Urine Cult Not Indicated
--- NOTE | 2025-04-02 03:18 | PC.NURSE ---
continue at bedside, pt continues restless on stretcher , blood drawn for repeat labs
[2025-04-02] MEDS: KETOROLAC 30 MG/ML VIAL 15 MG IV (03:23)
[2025-04-02 03:32] LABS: Alanine Aminotransferase 25 IU/L (<35); Albumin 3.8 g/dL (3.5-5.0); Albumin Globulin Ratio 1.3 (1.0-2.8); Alkaline Phosphatase 121 U/L (38-126); Blood Urea Nitrogen 17 mg/dL (7-17); Calcium 8.2 mg/dL (8.4-10.2); Carbon Dioxide 23 mmol/L (22-32); Chloride 109 mmol/L (98-107); Estimated Glomerular Filt Rate > 60 mL/min (>60); Globulin 2.9 g/dL (1.7-4.1); Glucose 243 mg/dL (70-99); HEMOLYSIS < 15 (0-50); Potassium 3.2 mmol/L (3.4-5.1); Sodium 140 mmol/L (137-145); Total Protein 6.7 g/dL (6.3-8.2)
[2025-04-02 04:11] LABS: Troponin I 0.119 ng/mL (0.01-0.034)
--- NOTE | 2025-04-02 05:04 | PC.NURSE ---
Call to Dr. Bryant to update latest labs. Anion gap of 8, with BS of 169, Currently pt insulin drip at 0.05units/kg/hr and NS with 20 mEq of K+. Per Dr. Bryant Run the NS with 20 mEq of K+ in faster and then start the D51/2 NS @150 ml/hr. Will continue to monitor pts BG Q1 hour, and follow protocol.
--- NOTE | 2025-04-02 05:06 | PC.NURSE ---
NS with 20 Kcl increased to 200 ml/hr as per Dr Bryant Hospitalist instructions
--- NOTE | 2025-04-02 05:37 | PC.NURSE ---
BS check 136, Insulin drip placed on hold.
[2025-04-02] MEDS: DEXTROSE 5%-0.45% NS 1,000 ML 150 ML IV (07:18)
--- NOTE | 2025-04-02 07:24 | P.HP_ITS ---
History of Present Illness History of Present Illness Date Patient Seen: 04/02/25 Time Patient Seen: 06:00 Chief complaint: code stroke Narrative: 70 y/o with PMH of NIDDM, managed with metformin, sustained a fall earlier today when out walking with a . On arrival to ED confused. Extensive workup negative for injuries or stroke. Presented in DKA. Treated with IVFs and insulin drip and initial Glc of ~ 600 decreased to ~ 250 at the time of admission. IVFs changed from NS to D5. Supplemented potassium in the ED. On admission she is still confused, encephalopathic, unable to provide a lot of history. [facility] Medical History (Updated 04/02/25 @ 07:35 by Mehrdad Bryant MD) Diabetes Meds Home Medications and Allergies Allergies Allergy/AdvReac Type Severity Reaction Status Date / Time No Known Drug Allergies Allergy Verified 10/06/19 20:47 Review of Systems Review of Systems Narrative: Very limited due to encephalopathy. Denies pain anywhere She has no complaints Knows that she fell into bushes Exam Vital Signs (past 8 hours): - 04/01/25 23:30 04/01/25 23:30 04/02/25 00:00 Pulse Rate 102 H 107 H Respiratory Rate 24 36 H Blood Pressure 197/94 H Pulse Oximetry 99 97 Oxygen Delivery Method 04/02/25 00:30 04/02/25 01:00 04/02/25 01:00 Pulse Rate 101 H 101 H Respiratory Rate 22 18 Blood Pressure 182/105 H Pulse Oximetry 96 96 Oxygen Delivery Method 04/02/25 01:30 04/02/25 01:31 04/02/25 01:31 Pulse Rate 107 H 107 H Respiratory Rate Blood Pressure 204/94 H Pulse Oximetry Oxygen Delivery Method 04/02/25 02:16 04/02/25 02:30 04/02/25 02:52 Pulse Rate 108 H 108 H 111 H Respiratory Rate 22 Blood Pressure Pulse Oximetry 98 96 98 Oxygen Delivery Method 04/02/25 02:52 04/02/25 03:00 04/02/25 03:30 Pulse Rate 108 H 110 H Respiratory Rate 25 H Blood Pressure 135/92 H Pulse Oximetry 98 Oxygen Delivery Method 04/02/25 03:31 04/02/25 03:31 04/02/25 04:00 Pulse Rate 111 H 101 H Respiratory Rate 23 Blood Pressure 170/73 H Pulse Oximetry Oxygen Delivery Method 04/02/25 04:00 04/02/25 04:30 04/02/25 04:30 Pulse Rate 98 H Respiratory Rate Blood Pressure 170/69 H 154/70 H Pulse Oximetry Oxygen Delivery Method 04/02/25 05:00 04/02/25 05:00 04/02/25 05:27 Pulse Rate 101 H Respiratory Rate Blood Pressure 163/67 H 167/77 H Pulse Oximetry Oxygen Delivery Method 04/02/25 05:27 04/02/25 05:30 04/02/25 05:31 Pulse Rate 105 H 104 H 104 H Respiratory Rate 19 30 H 38 H Blood Pressure Pulse Oximetry 96 99 Oxygen Delivery Method Room Air 04/02/25 05:31 04/02/25 06:00 04/02/25 06:01 Pulse Rate 101 H Respiratory Rate 15 Blood Pressure 205/75 H 189/87 H Pulse Oximetry Oxygen Delivery Method 04/02/25 06:01 04/02/25 06:30 04/02/25 06:30 Pulse Rate 101 H 107 H Respiratory Rate 16 26 H Blood Pressure 184/91 H Pulse Oximetry Oxygen Delivery Method Oxygen Delivery Method Room Air Narrative Exam Narrative: General - in no distress Skin - arm abrasions, buttock hematoma HEENT - atraumatic Neuro - w/o focal weakness, encephalopathic CVS - RRR RS - CTA GI - not distended, obese Objective ECG Impression: QTc 526 ms Sinus tachycardia 105 Old septal MT Labs 04/01/25 21:45 04/02/25 03:15 Labs: Laboratory Results - last 24 hr 04/01/25 04/01/25 04/01/25 21:45 22:15 22:51 WBC 8.5 RBC 5.36 H Hgb 15.2 Hct 45.2 MCV 84.4 MCH 28.3 MCHC 33.6 RDW 13.5 Plt Count 273 Neut % (Auto) 67.5 Lymph % (Auto) 22.5 L [place] % (Auto) 7.2 Eos % (Auto) 1.6 L Baso % (Auto) 1.2 Neut # (Auto) 5700 Lymph # (Auto) 1900 [place] # (Auto) 600 Eos # (Auto) 100 Baso # (Auto) 100 VBG pH 7.46 H VBG pCO2 33.4 L VBG pO2 48 H VBG HCO3 24 VBG Total CO2 22 L VBG O2 Saturation 86 H VBG Base Excess 0.4 FiO2 % 21.0 % Sodium 130 L Potassium 4.0 Chloride 93 L Carbon Dioxide 19 L BUN 20 H Creatinine 0.87 Estimated GFR > 60 BUN/Creatinine Ratio 23.0 H Glucose 737 H* POC Whole Bld Glucose > 500 H* Lactate 4.9 H* Calcium 9.5 Total Bilirubin 1.1 AST 29 ALT 25 Alkaline Phosphatase 215 H Total Creatine Kinase 54 Troponin I < 0.012 Total Protein 8.0 Albumin 4.6 Globulin 3.4 Albumin/Globulin Ratio 1.4 Lipase 56 Procalcitonin 0.077 Urine RBC Urine WBC Ur Squamous Epith Cells Urine Bacteria Ur Culture Indicated? Vol Urine Centrifuged Ketones 0.63 H 04/01/25 04/02/25 04/02/25 23:32 00:22 00:24 WBC RBC Hgb Hct MCV MCH MCHC RDW Plt Count Neut % (Auto) Lymph % (Auto) [place] % (Auto) Eos % (Auto) Baso % (Auto) Neut # (Auto) Lymph # (Auto) [place] # (Auto) Eos # (Auto) Baso # (Auto) VBG pH VBG pCO2 VBG pO2 VBG HCO3 VBG Total CO2 VBG O2 Saturation VBG Base Excess FiO2 % Sodium 138 Potassium 3.1 L Chloride 105 Carbon Dioxide 20 L BUN 19 H Creatinine 0.67 Estimated GFR > 60 BUN/Creatinine Ratio 28.4 H Glucose 354 H D POC Whole Bld Glucose > 500 H* 372 H D Lactate 3.9 H Calcium 8.7 Total Bilirubin 0.8 AST 28 ALT 30 Alkaline Phosphatase 157 H Total Creatine Kinase Troponin I 0.048 H Total Protein 7.0 Albumin 4.0 Globulin 3.0 Albumin/Globulin Ratio 1.3 Lipase Procalcitonin Urine RBC Urine WBC Ur Squamous Epith Cells Urine Bacteria Ur Culture Indicated? Vol Urine Centrifuged Ketones 04/02/25 04/02/25 04/02/25 01:32 01:36 02:32 WBC RBC Hgb Hct MCV MCH MCHC RDW Plt Count Neut % (Auto) Lymph % (Auto) [place] % (Auto) Eos % (Auto) Baso % (Auto) Neut # (Auto) Lymph # (Auto) [place] # (Auto) Eos # (Auto) Baso # (Auto) VBG pH VBG pCO2 VBG pO2 VBG HCO3 VBG Total CO2 VBG O2 Saturation VBG Base Excess FiO2 % Sodium Potassium Chloride Carbon Dioxide BUN Creatinine Estimated GFR BUN/Creatinine Ratio Glucose POC Whole Bld Glucose 375 H 378 H Lactate Calcium Total Bilirubin AST ALT Alkaline Phosphatase Total Creatine Kinase Troponin I Total Protein Albumin Globulin Albumin/Globulin Ratio Lipase Procalcitonin Urine RBC None seen Urine WBC None seen Ur Squamous Epith Cells None seen Urine Bacteria None seen Ur Culture Indicated? Cult not indicated Vol Urine Centrifuged 10ml (spun) Ketones 04/02/25 04/02/25 04/02/25 03:15 03:18 04:44 WBC RBC Hgb Hct MCV MCH MCHC RDW Plt Count Neut % (Auto) Lymph % (Auto) [place] % (Auto) Eos % (Auto) Baso % (Auto) Neut # (Auto) Lymph # (Auto) [place] # (Auto) Eos # (Auto) Baso # (Auto) VBG pH VBG pCO2 VBG pO2 VBG HCO3 VBG Total CO2 VBG O2 Saturation VBG Base Excess FiO2 % Sodium 140 Potassium 3.2 L Chloride 109 H Carbon Dioxide 23 BUN 17 Creatinine 0.59 Estimated GFR > 60 BUN/Creatinine Ratio 28.8 H Glucose 243 H D POC Whole Bld Glucose 169 H D Lactate Calcium 8.2 L Total Bilirubin 0.7 AST 26 ALT 25 Alkaline Phosphatase 121 Total Creatine Kinase Troponin I 0.119 H Total Protein 6.7 Albumin 3.8 Globulin 2.9 Albumin/Globulin Ratio 1.3 Lipase Procalcitonin Urine RBC Urine WBC Ur Squamous Epith Cells Urine Bacteria Ur Culture Indicated? Vol Urine Centrifuged Ketones 04/02/25 04/02/25 05:33 06:26 WBC RBC Hgb Hct MCV MCH MCHC RDW Plt Count Neut % (Auto) Lymph % (Auto) [place] % (Auto) Eos % (Auto) Baso % (Auto) Neut # (Auto) Lymph # (Auto) [place] # (Auto) Eos # (Auto) Baso # (Auto) VBG pH VBG pCO2 VBG pO2 VBG HCO3 VBG Total CO2 VBG O2 Saturation VBG Base Excess FiO2 % Sodium Potassium Chloride Carbon Dioxide BUN Creatinine Estimated GFR BUN/Creatinine Ratio Glucose POC Whole Bld Glucose 136 H 149 H Lactate Calcium Total Bilirubin AST ALT Alkaline Phosphatase Total Creatine Kinase Troponin I Total Protein Albumin Globulin Albumin/Globulin Ratio Lipase Procalcitonin Urine RBC Urine WBC Ur Squamous Epith Cells Urine Bacteria Ur Culture Indicated? Vol Urine Centrifuged Ketones Assessment & Plan Assessment and plan (1) Diabetes: Status: Acute (2) DKA (diabetic ketoacidosis): Qualifiers: Diabetes mellitus complication detail: without coma Diabetes mellitus type: type 2 Qualified Code(s): E11.10 - Type 2 diabetes mellitus with ketoacidosis without coma Status: Acute Assessment & Plan narrative: DM / DKA - at the time of admission I know that she takes metformin but not the dose - apparently son reported that her DM was uncontrolled - A1C pending DVT prophylaxis - Lovenox GI prophylaxis - Protonix Patient consented to real-time, audio-visual telemedicine visit with RN assisting during the exam. Patient located at [place], [place], provider located in [place]. Time-Based Coding :: [TOTAL MINUTES] spent with patient and on the chart (including review of chart, obtaining history, exam, reviewing outside data, placing orders, documenting exam and treatment plan, and counseling patient) on [DATE].
[2025-04-02 08:03] LABS: Add Manual Diff / Slide Review NO; Hematocrit 37.8 % (36-46); Hemoglobin 12.9 g/dL (12.0-16.0); Lymphocytes Absolute Auto 1600 /uL (1100-4500); Mean Corpuscular HGB Conc 34.3 % (30-36); Mean Corpuscular Hemoglobin 28.0 PG (26-34); Mean Corpuscular Volume 81.7 fL (80-100); Platelet Count 232 X10^3/uL (150-400)
[2025-04-02 08:18] LABS: Blood Urea Nitrogen 14 mg/dL (7-17); Calcium 8.6 mg/dL (8.4-10.2); Carbon Dioxide 24 mmol/L (22-32); Chloride 108 mmol/L (98-107); Estimated Glomerular Filt Rate > 60 mL/min (>60); Glucose 167 mg/dL (70-99); HEMOLYSIS < 15 (0-50); Potassium 3.6 mmol/L (3.4-5.1); Sodium 140 mmol/L (137-145)
[2025-04-02] MEDS: INSULIN DRIP PREMIX 100 UNIT/100 ML PLAST..BAG 7.29 UNIT IV ×2 (08:26→09:27)
[2025-04-02] MEDS: ENOXAPARIN 30 MG/0.3 ML SYRINGE SUBCUT (09:02)
[2025-04-02] MEDS: PANTOPRAZOLE 40 MG VIAL IV (09:03)
[2025-04-02] MEDS: ACETAMINOPHEN 325 MG TABLET 650 MG PO (09:07)
[2025-04-02] MEDS: INSULIN DRIP PREMIX 100 UNIT/100 ML PLAST..BAG IV ×2 (09:34→11:29)
--- NOTE | 2025-04-02 10:30 | PC.NURSE ---
Pt awake and confused. Pt crying and states that she doesn't know what happened last night. Reoriented pt to place and time.
--- NOTE | 2025-04-02 11:15 | PC.NURSE ---
Pt sitting up in gurney, scooting to end of bed. Pt reoriented and assisted back to laying in gurney.
--- NOTE | 2025-04-02 11:33 | PC.NURSE ---
Pt moving around [facility]. Asking to use phone to call daughter. Pt can't remember number. No number in chart. Called , no response.
[2025-04-02 13:24] LABS: Blood Urea Nitrogen 10 mg/dL (7-17); Calcium 8.6 mg/dL (8.4-10.2); Carbon Dioxide 24 mmol/L (22-32); Chloride 107 mmol/L (98-107); Estimated Glomerular Filt Rate > 60 mL/min (>60); Glucose 160 mg/dL (70-99); HEMOLYSIS < 15 (0-50); Potassium 3.1 mmol/L (3.4-5.1); Sodium 137 mmol/L (137-145)
[2025-04-02 13:51] LABS: Bilirubin Urine UA NEGATIVE (NEGATIVE); Color Urine UA YELLOW; Glucose Urine UA 2+ g/dL (Negative); Ketones Urine UA 1+ (NEGATIVE); Leukocyte Esterase Urine UA NEGATIVE (NEGATIVE); Nitrite Urine UA NEGATIVE (Negative); Occult Blood Urine UA 2+ (Negative); Protein Urine UA 2+ (Negative); Specific Gravity Urine UA 1.025 (1.000-1.035); Urobilinogen Urine UA 1.0 E.U./dL (0.2)
[2025-04-02 13:53] LABS: pH Urine UA 6.0 (4.5-8.0)
[2025-04-02 13:54] LABS: Appearance Urine UA Slightly Cloudy
[2025-04-02 13:58] LABS: Culture Indicated Urine Specimen Cultured
[2025-04-02] MEDS: POTASSIUM CHLORIDE 20 MEQ TAB 40 MEQ PO ×2 (14:41→20:08)
--- NOTE | 2025-04-02 14:54 | P.HP_ITS ---
History of Present Illness History of Present Illness Date Patient Seen: 04/02/25 Chief complaint: DKA in a type 2 diabetic Narrative: Chief complaint: Hyperglycemia greater than 700 and confusion DKA History of present illness: 68-year-old female on metformin monotherapy but has had very high blood sugars according to her son she is not an adequate historian as she was encephalopathic. Patient was admitted from the emergency department placed on insulin and dextrose infusion with resolution of her DKA in 12 hours. Patient admitted to the floor and started on Novolin 70 30 fixed dose insulin 10 units subQ twice daily with sliding scale insulin as needed for simplicity and affordability hemoglobin A1c is pending Review of systems: Patient has felt markedly fatigued with weak muscles very poor motivation and poor appetite Physical exam: Disheveled poorly kempt poorly groomed HEENT: Poor dentition Neck no JVD Heart rate and rhythm regular Lungs clear from apices to bases Abdomen nontender bowel sounds present nondistended Extremities no edema but with muscle wasting Skin with multiple excoriations at various stages of healing Neuro nonfocal but impaired cognition Assessment and plan: DKA in a type 2 diabetic probable loss of insulin production * DKA resolved discontinued insulin and dextrose infusion replace potassium orally * Novolin 70/30 10 units subQ twice daily and sliding scale insulin DVT prophylaxis * Lovenox Code status: * Full code [facility] Medical History (Updated 04/02/25 @ 07:35 by Mehrdad Bryant MD) Diabetes Social History household members: spouse Smoking Status: Former smoker alcohol intake: former Meds Home Medications and Allergies Allergies Allergy/AdvReac Type Severity Reaction Status Date / Time No Known Drug Allergies Allergy Verified 10/06/19 20:47 Exam Vital Signs (past 8 hours): - 04/02/25 07:00 04/02/25 07:07 04/02/25 07:30 Temperature Pulse Rate 99 H 98 H Respiratory Rate 17 Blood Pressure 151/69 H Pulse Oximetry 99 Oxygen Delivery Method Room Air Oxygen Flow Rate 04/02/25 07:30 04/02/25 08:20 04/02/25 09:20 Temperature Pulse Rate 87 78 Respiratory Rate 19 19 Blood Pressure 152/66 H Pulse Oximetry 95 98 Oxygen Delivery Method Room Air Room Air Oxygen Flow Rate 04/02/25 12:15 04/02/25 12:20 04/02/25 12:21 Temperature 98.6 F 97.7 F Pulse Rate 64 85 100 H Respiratory Rate 19 17 Blood Pressure 155/78 H 121/77 Pulse Oximetry 98 100 Oxygen Delivery Method Room Air Oxygen Flow Rate 04/02/25 12:30 04/02/25 12:30 04/02/25 12:32 Temperature 97.7 F Pulse Rate 94 H 85 Respiratory Rate 23 22 Blood Pressure 121/77 Pulse Oximetry 100 100 Oxygen Delivery Method Room Air Oxygen Flow Rate 0 04/02/25 12:45 04/02/25 13:30 Temperature Pulse Rate 80 83 Respiratory Rate 26 H 20 Blood Pressure 167/94 H 156/74 H Pulse Oximetry 99 99 Oxygen Delivery Method Oxygen Flow Rate Oxygen Delivery Method Room Air Oxygen Flow Rate 0 Objective Labs 04/02/25 07:58 04/02/25 12:52 Labs: Laboratory Results - last 24 hr 04/01/25 04/01/25 04/01/25 21:45 22:15 22:51 WBC 8.5 RBC 5.36 H Hgb 15.2 Hct 45.2 MCV 84.4 MCH 28.3 MCHC 33.6 RDW 13.5 Plt Count 273 Neut % (Auto) 67.5 Lymph % (Auto) 22.5 L [place] % (Auto) 7.2 Eos % (Auto) 1.6 L Baso % (Auto) 1.2 Neut # (Auto) 5700 Lymph # (Auto) 1900 [place] # (Auto) 600 Eos # (Auto) 100 Baso # (Auto) 100 VBG pH 7.46 H VBG pCO2 33.4 L VBG pO2 48 H VBG HCO3 24 VBG Total CO2 22 L VBG O2 Saturation 86 H VBG Base Excess 0.4 FiO2 % 21.0 % Sodium 130 L Potassium 4.0 Chloride 93 L Carbon Dioxide 19 L BUN 20 H Creatinine 0.87 Estimated GFR > 60 BUN/Creatinine Ratio 23.0 H Glucose 737 H* POC Whole Bld Glucose > 500 H* Lactate 4.9 H* Calcium 9.5 Total Bilirubin 1.1 AST 29 ALT 25 Alkaline Phosphatase 215 H Total Creatine Kinase 54 Troponin I < 0.012 Total Protein 8.0 Albumin 4.6 Globulin 3.4 Albumin/Globulin Ratio 1.4 Lipase 56 Procalcitonin 0.077 Urine Color Urine Appearance Urine pH Ur Specific [place] Urine Protein Urine Glucose (UA) Urine Ketones Urine Occult Blood Urine Nitrate Urine Bilirubin Urine Urobilinogen Ur Leukocyte Esterase Urine RBC Urine WBC Ur Squamous Epith Cells Urine Bacteria Hyaline Casts Ur Culture Indicated? Vol Urine Centrifuged Ketones 0.63 H 04/01/25 04/02/25 04/02/25 23:32 00:22 00:24 WBC RBC Hgb Hct MCV MCH MCHC RDW Plt Count Neut % (Auto) Lymph % (Auto) [place] % (Auto) Eos % (Auto) Baso % (Auto) Neut # (Auto) Lymph # (Auto) [place] # (Auto) Eos # (Auto) Baso # (Auto) VBG pH VBG pCO2 VBG pO2 VBG HCO3 VBG Total CO2 VBG O2 Saturation VBG Base Excess FiO2 % Sodium 138 Potassium 3.1 L Chloride 105 Carbon Dioxide 20 L BUN 19 H Creatinine 0.67 Estimated GFR > 60 BUN/Creatinine Ratio 28.4 H Glucose 354 H D POC Whole Bld Glucose > 500 H* 372 H D Lactate 3.9 H Calcium 8.7 Total Bilirubin 0.8 AST 28 ALT 30 Alkaline Phosphatase 157 H Total Creatine Kinase Troponin I 0.048 H Total Protein 7.0 Albumin 4.0 Globulin 3.0 Albumin/Globulin Ratio 1.3 Lipase Procalcitonin Urine Color Urine Appearance Urine pH Ur Specific [place] Urine Protein Urine Glucose (UA) Urine Ketones Urine Occult Blood Urine Nitrate Urine Bilirubin Urine Urobilinogen Ur Leukocyte Esterase Urine RBC Urine WBC Ur Squamous Epith Cells Urine Bacteria Hyaline Casts Ur Culture Indicated? Vol Urine Centrifuged Ketones 04/02/25 04/02/25 04/02/25 01:32 01:36 02:32 WBC RBC Hgb Hct MCV MCH MCHC RDW Plt Count Neut % (Auto) Lymph % (Auto) [place] % (Auto) Eos % (Auto) Baso % (Auto) Neut # (Auto) Lymph # (Auto) [place] # (Auto) Eos # (Auto) Baso # (Auto) VBG pH VBG pCO2 VBG pO2 VBG HCO3 VBG Total CO2 VBG O2 Saturation VBG Base Excess FiO2 % Sodium Potassium Chloride Carbon Dioxide BUN Creatinine Estimated GFR BUN/Creatinine Ratio Glucose POC Whole Bld Glucose 375 H 378 H Lactate Calcium Total Bilirubin AST ALT Alkaline Phosphatase Total Creatine Kinase Troponin I Total Protein Albumin Globulin Albumin/Globulin Ratio Lipase Procalcitonin Urine Color Urine Appearance Urine pH Ur Specific [place] Urine Protein Urine Glucose (UA) Urine Ketones Urine Occult Blood Urine Nitrate Urine Bilirubin Urine Urobilinogen Ur Leukocyte Esterase Urine RBC None seen Urine WBC None seen Ur Squamous Epith Cells None seen Urine Bacteria None seen Hyaline Casts Ur Culture Indicated? Cult not indicated Vol Urine Centrifuged 10ml (spun) Ketones 04/02/25 04/02/25 04/02/25 03:15 03:18 04:44 WBC RBC Hgb Hct MCV MCH MCHC RDW Plt Count Neut % (Auto) Lymph % (Auto) [place] % (Auto) Eos % (Auto) Baso % (Auto) Neut # (Auto) Lymph # (Auto) [place] # (Auto) Eos # (Auto) Baso # (Auto) VBG pH VBG pCO2 VBG pO2 VBG HCO3 VBG Total CO2 VBG O2 Saturation VBG Base Excess FiO2 % Sodium 140 Potassium 3.2 L Chloride 109 H Carbon Dioxide 23 BUN 17 Creatinine 0.59 Estimated GFR > 60 BUN/Creatinine Ratio 28.8 H Glucose 243 H D POC Whole Bld Glucose 169 H D Lactate Calcium 8.2 L Total Bilirubin 0.7 AST 26 ALT 25 Alkaline Phosphatase 121 Total Creatine Kinase Troponin I 0.119 H Total Protein 6.7 Albumin 3.8 Globulin 2.9 Albumin/Globulin Ratio 1.3 Lipase Procalcitonin Urine Color Urine Appearance Urine pH Ur Specific [place] Urine Protein Urine Glucose (UA) Urine Ketones Urine Occult Blood Urine Nitrate Urine Bilirubin Urine Urobilinogen Ur Leukocyte Esterase Urine RBC Urine WBC Ur Squamous Epith Cells Urine Bacteria Hyaline Casts Ur Culture Indicated? Vol Urine Centrifuged Ketones 04/02/25 04/02/25 04/02/25 05:33 06:26 07:15 WBC RBC Hgb Hct MCV MCH MCHC RDW Plt Count Neut % (Auto) Lymph % (Auto) [place] % (Auto) Eos % (Auto) Baso % (Auto) Neut # (Auto) Lymph # (Auto) [place] # (Auto) Eos # (Auto) Baso # (Auto) VBG pH VBG pCO2 VBG pO2 VBG HCO3 VBG Total CO2 VBG O2 Saturation VBG Base Excess FiO2 % Sodium 140 Potassium 3.6 Chloride 108 H Carbon Dioxide 24 BUN 14 Creatinine 0.61 Estimated GFR > 60 BUN/Creatinine Ratio 23.0 H Glucose 167 H POC Whole Bld Glucose 136 H 149 H Lactate Calcium 8.6 Total Bilirubin AST ALT Alkaline Phosphatase Total Creatine Kinase Troponin I Total Protein Albumin Globulin Albumin/Globulin Ratio Lipase Procalcitonin Urine Color Urine Appearance Urine pH Ur Specific [place] Urine Protein Urine Glucose (UA) Urine Ketones Urine Occult Blood Urine Nitrate Urine Bilirubin Urine Urobilinogen Ur Leukocyte Esterase Urine RBC Urine WBC Ur Squamous Epith Cells Urine Bacteria Hyaline Casts Ur Culture Indicated? Vol Urine Centrifuged Ketones 04/02/25 04/02/25 04/02/25 07:58 08:13 09:16 WBC 12.2 H RBC 4.62 Hgb 12.9 Hct 37.8 MCV 81.7 MCH 28.0 MCHC 34.3 RDW 13.4 Plt Count 232 Neut % (Auto) 77.9 H Lymph % (Auto) 13.4 L [place] % (Auto) 7.8 Eos % (Auto) 0.2 L Baso % (Auto) 0.7 Neut # (Auto) 9500 H Lymph # (Auto) 1600 [place] # (Auto) 1000 H Eos # (Auto) 0 Baso # (Auto) 100 VBG pH VBG pCO2 VBG pO2 VBG HCO3 VBG Total CO2 VBG O2 Saturation VBG Base Excess FiO2 % Sodium Potassium Chloride Carbon Dioxide BUN Creatinine Estimated GFR BUN/Creatinine Ratio Glucose POC Whole Bld Glucose 212 H 170 H Lactate Calcium Total Bilirubin AST ALT Alkaline Phosphatase Total Creatine Kinase Troponin I Total Protein Albumin Globulin Albumin/Globulin Ratio Lipase Procalcitonin Urine Color Urine Appearance Urine pH Ur Specific [place] Urine Protein Urine Glucose (UA) Urine Ketones Urine Occult Blood Urine Nitrate Urine Bilirubin Urine Urobilinogen Ur Leukocyte Esterase Urine RBC Urine WBC Ur Squamous Epith Cells Urine Bacteria Hyaline Casts Ur Culture Indicated? Vol Urine Centrifuged Ketones 04/02/25 04/02/25 04/02/25 10:28 11:24 12:23 WBC RBC Hgb Hct MCV MCH MCHC RDW Plt Count Neut % (Auto) Lymph % (Auto) [place] % (Auto) Eos % (Auto) Baso % (Auto) Neut # (Auto) Lymph # (Auto) [place] # (Auto) Eos # (Auto) Baso # (Auto) VBG pH VBG pCO2 VBG pO2 VBG HCO3 VBG Total CO2 VBG O2 Saturation VBG Base Excess FiO2 % Sodium Potassium Chloride Carbon Dioxide BUN Creatinine Estimated GFR BUN/Creatinine Ratio Glucose POC Whole Bld Glucose 162 H 143 H 181 H Lactate Calcium Total Bilirubin AST ALT Alkaline Phosphatase Total Creatine Kinase Troponin I Total Protein Albumin Globulin Albumin/Globulin Ratio Lipase Procalcitonin Urine Color Urine Appearance Urine pH Ur Specific [place] Urine Protein Urine Glucose (UA) Urine Ketones Urine Occult Blood Urine Nitrate Urine Bilirubin Urine Urobilinogen Ur Leukocyte Esterase Urine RBC Urine WBC Ur Squamous Epith Cells Urine Bacteria Hyaline Casts Ur Culture Indicated? Vol Urine Centrifuged Ketones 04/02/25 04/02/25 04/02/25 12:52 13:17 13:27 WBC RBC Hgb Hct MCV MCH MCHC RDW Plt Count Neut % (Auto) Lymph % (Auto) [place] % (Auto) Eos % (Auto) Baso % (Auto) Neut # (Auto) Lymph # (Auto) [place] # (Auto) Eos # (Auto) Baso # (Auto) VBG pH VBG pCO2 VBG pO2 VBG HCO3 VBG Total CO2 VBG O2 Saturation VBG Base Excess FiO2 % Sodium 137 Potassium 3.1 L Chloride 107 Carbon Dioxide 24 BUN 10 Creatinine 0.60 Estimated GFR > 60 BUN/Creatinine Ratio 16.7 Glucose 160 H POC Whole Bld Glucose 185 H Lactate Calcium 8.6 Total Bilirubin AST ALT Alkaline Phosphatase Total Creatine Kinase Troponin I Total Protein Albumin Globulin Albumin/Globulin Ratio Lipase Procalcitonin Urine Color Yellow Urine Appearance Slightly cloudy Urine pH 6.0 Ur Specific [place] 1.025 Urine Protein 2+ H Urine Glucose (UA) 2+ H Urine Ketones 1+ H Urine Occult Blood 2+ H Urine Nitrate Negative Urine Bilirubin Negative Urine Urobilinogen 1.0 Ur Leukocyte Esterase Negative Urine RBC 10-30/hpf H D Urine WBC 5-10/hpf H Ur Squamous Epith Cells 0-1 /hpf Urine Bacteria Few (2-10) H Hyaline Casts 0-1/lpf Ur Culture Indicated? Specimen cultured Vol Urine Centrifuged 10ml (spun) Ketones 04/02/25 14:17 WBC RBC Hgb Hct MCV MCH MCHC RDW Plt Count Neut % (Auto) Lymph % (Auto) [place] % (Auto) Eos % (Auto) Baso % (Auto) Neut # (Auto) Lymph # (Auto) [place] # (Auto) Eos # (Auto) Baso # (Auto) VBG pH VBG pCO2 VBG pO2 VBG HCO3 VBG Total CO2 VBG O2 Saturation VBG Base Excess FiO2 % Sodium Potassium Chloride Carbon Dioxide BUN Creatinine Estimated GFR BUN/Creatinine Ratio Glucose POC Whole Bld Glucose 189 H Lactate Calcium Total Bilirubin AST ALT Alkaline Phosphatase Total Creatine Kinase Troponin I Total Protein Albumin Globulin Albumin/Globulin Ratio Lipase Procalcitonin Urine Color Urine Appearance Urine pH Ur Specific [place] Urine Protein Urine Glucose (UA) Urine Ketones Urine Occult Blood Urine Nitrate Urine Bilirubin Urine Urobilinogen Ur Leukocyte Esterase Urine RBC Urine WBC Ur Squamous Epith Cells Urine Bacteria Hyaline Casts Ur Culture Indicated? Vol Urine Centrifuged Ketones Assessment & Plan Time-Based Coding :: 55 minutes spent with patient and on the chart (including review of chart, obtaining history, exam, reviewing outside data, placing orders, documenting exam and treatment plan, and counseling patient).
--- NOTE | 2025-04-02 15:20 | PC.ADMIT ---
[address] Admission Note: PT ADMITTED TO UNIT AT 1220. 100% ON ROOM AIR. HEART RATE 85. BP 121/77. TEMP 97.7F. A/OX3. VERY RESTLESS IN BED. INSULIN GTT RUNNING AT 1.4 MLS/HR AND D51/2 NS @150 MLS/HR. L AC INTACT. R AC OCCLUDED/ REMOVED. BLOOD SUGAR 181. IN TARGET RANGE. NO CHANGES MADE TO GTT. NOTIFIED MD OF PATIENT ARRIVAL TO UNIT. MD STATES HE WILL REVIEW CHART WHEN HE HAS A CHANCE. REQUESTED Q4BMP ORDER. LABS SENT. CARE ONGOING. The patient,Jenelle Randolph,70 y/o, was given written information regarding hospital policies, unit procedures and contact persons. Patient's smoking status: Former smoker. Vital Signs - 8 hr 04/02/25 07:30 04/02/25 07:30 04/02/25 08:20 Temperature Pulse Rate 98 H 87 Respiratory Rate 17 19 Blood Pressure 152/66 H Pulse Oximetry 99 95 Oxygen Delivery Method Room Air Room Air Oxygen Flow Rate 04/02/25 09:20 04/02/25 12:15 04/02/25 12:20 Temperature 98.6 F 97.7 F Pulse Rate 78 64 85 Respiratory Rate 19 19 17 Blood Pressure 155/78 H 121/77 Pulse Oximetry 98 98 100 Oxygen Delivery Method Room Air Room Air Oxygen Flow Rate 04/02/25 12:21 04/02/25 12:30 04/02/25 12:30 Temperature Pulse Rate 100 H 94 H Respiratory Rate 23 Blood Pressure Pulse Oximetry 100 Oxygen Delivery Method Room Air Oxygen Flow Rate 04/02/25 12:32 04/02/25 12:45 04/02/25 13:30 Temperature 97.7 F Pulse Rate 85 80 83 Respiratory Rate 22 26 H 20 Blood Pressure 121/77 167/94 H 156/74 H Pulse Oximetry 100 99 99 Oxygen Delivery Method Oxygen Flow Rate 0 04/02/25 15:00 Temperature Pulse Rate 78 Respiratory Rate 22 Blood Pressure 157/74 H Pulse Oximetry 99 Oxygen Delivery Method Oxygen Flow Rate
[2025-04-02] MEDS: INSULIN NPH/REG 70-30 100 UNIT/ML 10ML VIAL 10 UNIT SUBCUT (16:12)
[2025-04-02] MEDS: LOSARTAN 50 MG TABLET PO (18:01)
[2025-04-02] MEDS: hydrALAZINE 20 MG/ML VIAL 10 MG IV ×2 (18:01→22:49)
--- NOTE | 2025-04-02 18:19 | PC.NURSE ---
PT OFF INSULIN GTT AROUND 1500 AND TRANSITIONED TO SQ HUMULIN BID PER DR WRIGHT. PT CONTINUES TO BE RESTLESS/ CONFUSED IN BED. PER SISTER, PATIENT IS AT HER BASELINE. ACCIDENTALLY PULLING OFF LEADS/ IVS THROUGHOUT SHIFT. REQUESTED 1:1 SITTER FROM COORDINATOR FOR OVERNIGHT BUT RN STATES THERE IS NONE AVAILABLE. BP CONTINUES TO BE ELEVATED IN SYS 200S. MD AWARE. SEE PROVIDER NOTIFICATIONS. BP MEDS GIVEN. SEE EMAR. AT BEDSIDE. REQUESTED LIST OF HOME MEDICATIONS. STATES HE WILL BRING THEM TOMORROW. DTV AT 2100. [place] IN PLACE. CARE ONGOING.
[2025-04-03] VITALS (27 sets, daily range): BP systolic 113–193; BP diastolic 53–96; PULSE 79–118; RESP 11–23; TEMP 36.3–36.6; O2SAT 91–100
[2025-04-03 05:40] LABS: Add Manual Diff / Slide Review NO; Hematocrit 39.6 % (36-46); Hemoglobin 13.6 g/dL (12.0-16.0); Lymphocytes Absolute Auto 1500 /uL (1100-4500); Mean Corpuscular HGB Conc 34.3 % (30-36); Mean Corpuscular Hemoglobin 28.4 PG (26-34); Mean Corpuscular Volume 82.7 fL (80-100); Platelet Count 211 X10^3/uL (150-400)
[2025-04-03] MEDS: hydrALAZINE 20 MG/ML VIAL 10 MG IV (06:06)
[2025-04-03 06:11] LABS: Blood Urea Nitrogen 11 mg/dL (7-17); Calcium 9.1 mg/dL (8.4-10.2); Carbon Dioxide 21 mmol/L (22-32); Chloride 106 mmol/L (98-107); Estimated Glomerular Filt Rate > 60 mL/min (>60); Glucose 300 mg/dL (70-99); HEMOLYSIS < 15 (0-50); Potassium 4.2 mmol/L (3.4-5.1); Sodium 135 mmol/L (137-145)
[2025-04-03] MEDS: INSULIN NPH/REG 70-30 100 UNIT/ML 10ML VIAL 15 UNIT SUBCUT ×2 (07:51→16:59)
[2025-04-03] MEDS: INSULIN REGULAR 100 UNIT/ML 3 ML VIAL SUBCUT ×4 (07:51→20:37)
[2025-04-03] MEDS: ENOXAPARIN 40 MG/0.4 ML SYRINGE SUBCUT (08:22)
[2025-04-03] MEDS: SODIUM CHLORIDE 0.9% FLUSH 10 ML IV ×2 (08:23→20:38)
[2025-04-03] MEDS: LOSARTAN 50 MG TABLET PO (09:10)
--- NOTE | 2025-04-03 14:26 | CM.DANOTE ---
Patient is a 70 yo female who was admitted INPT Status on 04/02/25 for DKA. Pt has [facility] MCR and [facility] for insurance and her PCP is not listed. EMR was reviewed. Per MD, pt with hx of insulin non compliance and some confusion at baseline and admitted for DKA. SW met bedside with pt and her sister Pia ([phone]) who lives in [place] but up visiting and pt with confusion likely increased from baseline due to DKA. Sister confirms that pt lives in [facility] in their father's house and Sig Other Jarred lives with pt but is not a caregiver and is not interested in helping pt manage her meds or take care of her. Pt does not have formal POA but sister states they had an appointment scheduled for tomorrow Fri to complete Living Will and POA pwk but pt ended up being admitted. Pt has 2 adult children, son in [facility], and Dtr in [place] but they are estranged. Pt has no other siblings or parents as they are besides sister Pia. Pt has hx of SNF in [facility] (sister unsure which one) about 3 years ago after extensive abd surgery. Sister feels SNF needed for strengthening and med management before discharging home. Provided Medicaid LTC application but sister states pt likely would not qualify due to her having the house in her name and inheritance from their dad who . But pt has finances to pay for private caregivers if needed and sister's ultimate goal would be for pt and herself to move into [facility]. Sister will remain in town for a few days to confirm pt set to go to SNF then well return to [place] to settle some of her affairs before coming back up to visit pt and assist with d/c from SNF. Provided SNF Choice list and no real preference but sister requesting referral to [facility] and [facility] to start to see if they have beds available and willing to get [facility] M[facility] auth. SW made [facility] referrals to and [facility]. [facility] started but unclear if pt's Lorazepam and Clonazepam are home meds or just here in the hospital. PT/OT to be ordered when pt more medically appropriate. Plan: SW to follow closely for PT/OT eval orders and [facility] and [facility] review to determine if SNF can accept at d/c and start [facility] M[facility] auth. CHRIS Poole Discharge Planning/Care Management CM Discharge Assessment Start: 04/02/25 07:58 Freq: Status: Active Protocol: Document 04/03/25 14:21 BF (Rec: 04/03/25 14:25 BF [id number]) Discharge Planning Assessment Assigned Discharge CHRIS Brennan Certified Physician Assistant DPOA/Assigned none, planning on her sister Pia Designee Name Advance Directives? No Advance Directives No on File History Provided By Patient,Family Member,Medical Record Has Patient been No admitted in last 30 days? Prior Living House Arrangements Household Members significant other Comment Jarred, not , Type of Relies on Others transporation used prior to admit Independent with ADL No: hasn't been taking meds 's Is patient alert and No: confusion oriented? Needs Assistance Meal Prep,Managing Medications,Home Chores / Shopping With Caregiver for No Another DME Already Rented / FWW / Walker Owned Patient/Family [facility] Facility Preference Barriers to No Discharge Discharge Plan Ch[facility] Facility Transportation Likely facility van Arrangement Referrals Initiated [facility] If patient plan is Yes SNF: Has PASSR been completed? Medicare Choice List Yes Provided Medicare choice list patient,family reviewed on electronic tablet with SNF/HH Preference [facility] or [facility] Has Agency SNF been Yes contacted Whiteboard Updated Yes in Patient Room with name and ext. # of Plastics Bench Mechanic Review Status In Process Please Provide Date 04/03/25 Initial DC Assessment Was Performed Next Review Type Continued Stay Review
--- NOTE | 2025-04-03 15:51 | PC.NURSE ---
ADRIANA ROUNDED ON PT THIS AM. INSULIN ORDERS ADJUSTED. PATIENT IS LESS RESTLESS THAN YESTERDAY AND REMAINS A/OX2-3. CALM AND COMFORTABLE AT THIS TIME. PT SPIT OUT MEDS EARLY THIS AM D/T SUDDEN NAUSEA. PHARMACY NOTIFIED. STATED OK TO WASTE MEDS AND READMINISTER. HAIR WASHED AND LINENS CHANGED. 2 BMS AND [address] OK PER [address] WRIGHT TO DOWNGRADE TO ACUTE CARE AND D/C TELE.
--- NOTE | 2025-04-03 16:14 | PM.PN.1 ---
Subjective Subjective Date Patient Seen: 04/03/25 Interval history: Chief complaint: Hyperglycemia greater than 700 and confusion DKA History of present illness: 03/03 68-year-old female on metformin monotherapy but has had very high blood sugars according to her son she is not an adequate historian as she was encephalopathic. Patient was admitted from the emergency department placed on insulin and dextrose infusion with resolution of her DKA in 12 hours. Patient admitted to the floor and started on Novolin 70 30 fixed dose insulin 10 units subQ twice daily with sliding scale insulin as needed for simplicity and affordability hemoglobin A1c is pending Hospital course: 03/04: Patient is much more animated and cogent but still has severely impaired memory blood sugars are running in the 200-300 range insulin is being adjusted patient also hypotensive in antihypertensive medications are also being adjusted Review of systems: Slept well overnight No headache diplopia No difficulty swallowing No nausea vomiting No chest pain shortness for breath palpitations The paresthesia paresis Weakness improved Physical exam: Better groomed today HEENT: Poor dentition Neck no JVD Heart rate and rhythm regular Lungs clear from apices to bases Abdomen nontender bowel sounds present nondistended Extremities no edema but with muscle wasting Skin with multiple excoriations at various stages of healing Neuro nonfocal but impaired cognition Assessment and plan: DKA in a type 2 diabetic probable loss of insulin production DKA resolved discontinued insulin and dextrose infusion replace potassium orally Novolin 70/30 10 units subQ twice daily and sliding scale insulin Dementia with poor self-care skills and business support specialist 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 not meeting patient's needs Acute rehab versus jail at the time of discharge likely in 48 hours DVT prophylaxis Lovenox Code status: Full code 35 minutes spent with patient and on the chart (including review of chart, obtaining history, exam, reviewing outside data, placing orders, documenting exam and treatment plan, and counseling patient) Exam Vital Signs (past 8 hours): - 04/03/25 09:09 04/03/25 09:10 04/03/25 10:00 Temperature 97.3 F L Pulse Rate 102 H 98 H Respiratory Rate 18 18 Blood Pressure 150/65 H 150/65 H 114/56 L Pulse Oximetry 99 97 Oxygen Delivery Method 04/03/25 11:00 04/03/25 12:00 04/03/25 12:00 Temperature Pulse Rate 100 H 105 H Respiratory Rate 12 18 Blood Pressure 136/62 154/87 H Pulse Oximetry 96 97 Oxygen Delivery Method Room Air 04/03/25 12:00 04/03/25 13:00 04/03/25 13:00 Temperature 97.4 F L Pulse Rate 108 H 97 H 97 H Respiratory Rate 20 23 Blood Pressure 154/87 H 137/64 137/64 Pulse Oximetry 97 98 98 Oxygen Delivery Method 04/03/25 14:00 04/03/25 14:00 04/03/25 15:00 Temperature Pulse Rate 84 83 83 Respiratory Rate 18 Blood Pressure 117/65 117/65 124/56 L Pulse Oximetry 99 99 95 Oxygen Delivery Method 04/03/25 16:00 Temperature 97.8 F Pulse Rate 90 Respiratory Rate 12 Blood Pressure 127/60 Pulse Oximetry 98 Oxygen Delivery Method Oxygen Delivery Method Room Air Oxygen Flow Rate 0 Objective Labs 04/03/25 05:34 04/03/25 05:34 Labs: Laboratory Results - last 24 hr 04/02/25 04/02/25 04/03/25 16:08 22:35 05:34 WBC 10.4 RBC 4.79 Hgb 13.6 Hct 39.6 MCV 82.7 MCH 28.4 MCHC 34.3 RDW 13.6 Plt Count 211 Neut % (Auto) 73.4 Lymph % (Auto) 14.5 L Hudspeth % (Auto) 9.2 Eos % (Auto) 2.2 Baso % (Auto) 0.7 Neut # (Auto) 7600 H Lymph # (Auto) 1500 Hudspeth # (Auto) 1000 H Eos # (Auto) 200 Baso # (Auto) 100 Sodium 135 L Potassium 4.2 Chloride 106 Carbon Dioxide 21 L BUN 11 Creatinine 0.80 Estimated GFR > 60 BUN/Creatinine Ratio 13.8 Glucose 300 H D POC Whole Bld Glucose 193 H 288 H Calcium 9.1 04/03/25 04/03/25 04/03/25 06:54 07:48 12:04 WBC RBC Hgb Hct MCV MCH MCHC RDW Plt Count Neut % (Auto) Lymph % (Auto) Hudspeth % (Auto) Eos % (Auto) Baso % (Auto) Neut # (Auto) Lymph # (Auto) Hudspeth # (Auto) Eos # (Auto) Baso # (Auto) Sodium Potassium Chloride Carbon Dioxide BUN Creatinine Estimated GFR BUN/Creatinine Ratio Glucose POC Whole Bld Glucose 333 H 305 H 301 H Calcium PFSH Medical History (Updated 04/02/25 @ 07:35 by Mehrdad Bryant MD) Diabetes Social History household members: significant other Smoking Status: Former smoker alcohol intake: former
[2025-04-04 03:00] VITALS: BP 128/57; PULSE 68; RESP 12; TEMP 36.3; O2SAT 98
[2025-04-04 08:00] VITALS: BP 132/62; PULSE 80; RESP 20; O2SAT 98
[2025-04-04] MEDS: INSULIN NPH/REG 70-30 100 UNIT/ML 10ML VIAL 15 UNIT SUBCUT (09:07)
[2025-04-04] MEDS: INSULIN REGULAR 100 UNIT/ML 3 ML VIAL SUBCUT ×4 (09:09→21:48)
[2025-04-04] MEDS: ENOXAPARIN 40 MG/0.4 ML SYRINGE SUBCUT (10:00)
[2025-04-04] MEDS: LOSARTAN 50 MG TABLET PO (10:00)
[2025-04-04] MEDS: SODIUM CHLORIDE 0.9% FLUSH 10 ML IV ×2 (10:08→21:48)
--- NOTE | 2025-04-04 11:35 | OT.IP.EVAL ---
Current Diagnoses Type 2 diabetes mellitus with ketoacidosis without coma (04/02/25) Type 2 diabetes mellitus without complications (04/02/25) Past Medical History (Last Updated 04/02/25 @ 07:35 by Mehrdad Bryant MD) Diabetes Occupational Therapy Inpatient Evaluation/Re-Eval M1 PT/OT-IP Prior Functional Status Start: 04/04/25 12:03 Freq: NEEDED Status: Active Protocol: Document 04/04/25 12:03 [facility] (Rec: 04/04/25 12:17 [facility] Desktop) Medical Review Prior Functional Status Mobility and Gait Pt uses a 4ww 50% of the time. Activities of Daily Pt mainly just wears gowns and has not been showering. Living and IADL's Social History Household Members significant other-drives her places Living Arrangements House Number of Floors ( One Floor Floors) Number of Stairs To NO steps. Enter/Railing? Home Environment Standard Height Toilet Home Equipment Four Wheel Walker,Straight Cane,Tub Transfer Bench,Hand Held Shower M2 OT-IP Current Condition Start: 04/04/25 12:03 Freq: Status: Active Protocol: Document 04/04/25 12:03 [facility] (Rec: 04/04/25 12:17 [facility] Desktop) Occupational Therapy Current Condition Current Condition Evaluation Date 04/04/25 Treatment Diagnosis acute DKA, weakness Diagnosis Onset Date 04/02/25 M3 OT- IP Subjective and Pain Start: 04/04/25 12:03 Freq: Status: Active Protocol: Document 04/04/25 12:03 [facility] (Rec: 04/04/25 12:17 [facility] Desktop) OT- Subjective Occupational Therapy Visit Type Type Initial Evaluation Visit Start Time 11:10 Visit Stop Time 11:35 Occupational Therapy Visit Comments Patient Comments Pt agreed to get up to the recliner. Patient/Caregiver To get better. Goals M4 OT- IP ADL's Start: 04/04/25 12:03 Freq: Status: Active Protocol: Document 04/04/25 12:03 [facility] (Rec: 04/04/25 12:17 [facility] Desktop) OT [id number] Comments OT Self-Feeding Not at meal time. Comments OT ADL-Grooming General Evaluation Grooming Ability Minimal Assistance Areas Needing Retrieving/Set-up of Grooming Items,Combing/Brushing Assistance Hair Comments OT Grooming Comments Able to while seated. Cues for completeness for her hair. OT ADL-Oral Care General Eval Oral Care Ability Standby Assistance Areas of Assistance Retrieving/Set-Up of Items OT ADL-Dressing General Eval Lower Body Dressing Maximum Assistance Ability Comments OT Dressing Comments Due to decreased sitting balance, pt not able to do her socks. OT ADL-Bathing Comments OT Bathing Comments Pt does not shower. M5 OT- IP IADL's Start: 04/04/25 12:03 Freq: Status: Active Protocol: Document 04/04/25 12:03 [facility] (Rec: 04/04/25 12:17 [facility] Desktop) OT-Instrumental Activities of Daily Living Medication Management Medication At this time pt will need assist. Management Comments Money Management Money Management Pt will need assist. Comments Meal Preparation Meal Preparation Pt will need help. Comments Poker Machine Attendant Poker Machine Attendant Pt will need help. 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 Pt would benefit from SLUMS. OT- Vision and Hearing OT- Hearing Assessment OT- Hearing WFL Assessment OT- Vision Assessment Visual Acuity Glasses All The Time Vision Assessment NOt able to accurately assess, per pt had TIA which Comments affected her vision on the left. M7 OT- IP Mobility and Balance Start: 04/04/25 12:03 Freq: Status: Active Protocol: Document 04/04/25 12:03 [facility] (Rec: 04/04/25 12:17 [facility] Desktop) OT-Transfer Assessment Sit to and From Stand Sit to and from Moderate Assistance,2 Person Assistance Stand Transfers Transfer Ability Moderate Assistance,2 Person Assistance Technique Transfer Destination Chair Comments Mobility Comments MODA X2 to stand to the FWW and needing two person for safety for transfers, pt's LLE hyperextends and is very weak. MAX vc for safety with FWW. OT- Balance Assessment Sitting Balance and Reactions Static Sitting Good Balance Ability Dynamic Sitting Fair Balance Ability Standing Balance and Reactions Static Standing Poor Balance Ability Dynamic Standing Poor Balance Ability M8 OT- IP Objective Assessments Start: 04/04/25 12:03 Freq: Status: Active Protocol: Document 04/04/25 12:03 [facility] (Rec: 04/04/25 12:17 [facility] Desktop) OT Gross Range of Motion Upper Extremity Range of Motion Assessment Within Functional Limits OT Strength Upper Extremity Strength Assessment Within Functional Limits Comments Strength Comments BUE RUE 4+/5 to 4/5, LUE 4-/5 to 4/5 OT- Coordination Assessment Upper Extremity Finger to Nose Test Left UE Impaired M9 OT- IP Assessment and Plan Start: 04/04/25 12:03 Freq: Status: Active Protocol: Document 04/04/25 12:03 [facility] (Rec: 04/04/25 12:17 [facility] Desktop) OT Summary Assessment and Plan Potential Rehabilitation Good Potential Analytic Complexity Moderate at Evaluation Summary OT Impairments Strength,Balance,Functional Cognition,Functional Mobility,Self-Feeding,Grooming,Dressing,Toileting, Bathing,Toilet Transfers,Shower Transfers,Activity Tolerance Progress Towards Slow Progress due to Medical Issues,Slow Progress due Goals to Activity Tolerance,Slow Progress due to Cognition Assessment Summary Pt main barriers are decreased balance, strength, activity tolerance, and functional cognition due to acute DKI. Pt looking to go to skilled rehab and her sister working on plan afterwards to move her to a facility. Pt having difficulty to follow commands today and therefore to further assess her vision tomorrow. Goals Self-Feeding Goal Independent Grooming Goal Independent Dressing Goal Standby Assistance Toileting Goal Standby Assistance Bathing Goal Minimal Assistance Toilet Transfer Goal Standby Assistance Shower Transfer Goal Contact Guard Assistance Days to Meet Goals 25 Frequency of Treatment Other frequency 5x/week Treatment Plan OT Treatment Plan ADL Training,Functional Cognition Training,Functional Mobility,Patient/Family Education,Discharge Planning Other Treatment Standing ADL at sink with FWW DARIUS. Recommendations and Next Treatment Focus Discharge Recommendations OT Discharge SNF Rehab Recommendations Transportation Needs Wheelchair/Cabulance at Discharge
[2025-04-04 12:00] VITALS: BP 126/61; PULSE 82; RESP 18; O2SAT 97
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
--- NOTE | 2025-04-04 12:07 | PM.DS.1 ---
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 Patient was admitted from the emergency department placed on insulin and dextrose infusion with resolution of her DKA in 12 hours. Patient admitted to the floor and started on Novolin 70 30 fixed dose insulin 10 units subQ twice daily with sliding scale insulin as needed for simplicity and affordability hemoglobin A1c is pending Review of systems: Patient has felt markedly fatigued with weak muscles very poor motivation and poor appetite Physical exam: Disheveled poorly kempt poorly groomed HEENT: Poor dentition Neck no JVD Heart rate and rhythm regular Lungs clear from apices to bases Abdomen nontender bowel sounds present nondistended Extremities no edema but with muscle wasting Skin with multiple excoriations at various stages of healing Neuro nonfocal but impaired cognition Hospital course: Patient's mentation and blood sugars improved with switch to Doppler and 70 30 and titrated up to 20 units subQ b.i.d. for fair glycemic control further adjustments will be made at long-term where she will be discharged Review of systems: Slept well overnight No headache diplopia No difficulty swallowing No nausea vomiting No chest pain shortness for breath palpitations The paresthesia paresis Weakness improved Physical exam: Better groomed today HEENT: Poor dentition Neck no JVD Heart rate and rhythm regular Lungs clear from apices to bases Abdomen nontender bowel sounds present nondistended Extremities no edema but with muscle wasting Skin with multiple excoriations at various stages of healing Neuro nonfocal but impaired cognition Assessment and plan: DKA in a type 2 diabetic probable loss of insulin production DKA resolved discontinued insulin and dextrose infusion replace potassium orally Novolin 70/30 10 units subQ twice daily and sliding scale insulin DVT prophylaxis Lovenox Code status: Full code 35 minutes were involved in managing the discharge of this patient Discharge Providers Provider Date of admission: 04/02/25 03:42 Discharge Date: 04/04/25 Consults: 04/02/25 14:12 Consult to PUNCH MACHINE OPERATOR - Broaching Machine Repairer Routine Comment: Broaching Machine Repairer Consult needed for:: Unable to care for self Comment: PT'S DAUGHTER STATES PT IS UNABLE TO CARE FOR HERSELF AND IS NOT WANTING TO CARE FOR HER. STATES SHE THROWS ALL HER PILLS AWAY. REQUESTING HOME HEALTH OR ANY HELP. 04/04/25 09:10 Consult to Occupational Therapy Evaluate & Treat Comment: Physician Instructions: Evaluate and treat Consult to Physical Therapy Evaluate & Treat Comment: Physician Instructions: Evaluate and Treat Discharge provider: Osbaldo Burris MD Exam Vital Signs (past 8 hours): - 04/04/25 04:08 04/04/25 08:00 Pulse Rate 80 Respiratory Rate 20 Blood Pressure 132/62 Pulse Oximetry 98 Oxygen Delivery Method Room Air Oxygen Delivery Method Room Air Oxygen Flow Rate 0 Objective Labs 04/03/25 05:34 04/03/25 05:34 Labs: Laboratory Results - last 24 hr 04/03/25 04/03/25 04/04/25 16:58 20:00 08:08 POC Whole Bld Glucose 154 H D 210 H 256 H [facility] Medical History (Updated 04/02/25 @ 07:35 by Mehrdad Bryant MD) Diabetes Social History household members: significant other Smoking Status: Former smoker alcohol intake: former Discharge Plan Discharge Plan Patient Disposition: SNF Transfer to: [facility] Discharge orders & Medications Prescriptions: New losartan 50 mg Tablet 50 mg PO DAILY Qty: 60 0RF Humulin 70/30 U-100 Insulin 100 unit/mL (70-30) Suspension 20 unit SUBCUT BIDAC Qty: 20 0RF Humulin R Regular U-100 Insuln 100 unit/mL Solution 0 unit SUBCUT ACHS Qty: 20 0RF Visit Report/Discharge Packet Stand Alone Forms: Patient Portal/API
--- NOTE | 2025-04-04 14:09 | CM.DPC ---
Addendum entered by CHRIS Poole 04/04/25 14:54: ADD: Met bedside with pt's sister Pia and pt sleeping soundly and provided blank copy of medical POA pwk and discussed if pt more alert and able to acknowledge understanding POA then likely could complete before pt's discharge to SNF and sister very appreciative and will review the blank copy. BF Original Note: DCP SNF Planning: Per MD, pt making some progress but still being treated for her DKA and not yet stable for discharge today. Per PT/OT eval, recommending SNF rehab at d/c. Per [facility], they could accept and have a female bed. Per [facility], they could accept as well. SW met bedside with pt and Sig Other Jarred and updated on above and pt able to state her preference is [facility] in [place] at d/c. [facility] willing to submit for auth and could accept tomorrow 04/05 if auth obtained. Plan: SW to follow for plan of d/c to [facility] tomorrow if [place] auth obtained before d/c back home with sister support. CHRIS Poole
[2025-04-04 16:00] VITALS: BP 152/63; PULSE 82; RESP 20; TEMP 36.2; O2SAT 97
[2025-04-04] MEDS: INSULIN NPH/REG 70-30 100 UNIT/ML 10ML VIAL 20 UNIT SUBCUT (16:28)
[2025-04-04 20:00] VITALS: BP 159/57; PULSE 109; RESP 20; TEMP 36.4; O2SAT 97
[2025-04-04 23:00] VITALS: BP 174/75; PULSE 90; RESP 18; TEMP 36.3; O2SAT 96
[2025-04-05 03:00] VITALS: BP 143/71; PULSE 83; RESP 20; TEMP 36.2; O2SAT 98
[2025-04-05] MEDS: INSULIN REGULAR 100 UNIT/ML 3 ML VIAL SUBCUT ×2 (08:20→12:18)
[2025-04-05] MEDS: INSULIN NPH/REG 70-30 100 UNIT/ML 10ML VIAL 20 UNIT SUBCUT (08:21)
[2025-04-05 08:26] VITALS: BP 138/58; PULSE 87
[2025-04-05] MEDS: ENOXAPARIN 40 MG/0.4 ML SYRINGE SUBCUT (08:26)
[2025-04-05] MEDS: LOSARTAN 50 MG TABLET PO (08:26)
[2025-04-05] MEDS: SODIUM CHLORIDE 0.9% FLUSH 10 ML IV (08:28)
[2025-04-05 08:46] VITALS: BP 138/48; PULSE 85; RESP 16; TEMP 35.7; O2SAT 97
--- NOTE | 2025-04-05 11:01 | CM.DPC ---
DCP Cont. Reviewed EMR and team rounds for pt's status updates. Pt has been medically cleared for d/c today to [facility]. They will transport her at 1:00pm Faxed d/c clinicals, PASSAR, order and scripts. No further d/c needs indicated at this time.
--- NOTE | 2025-04-05 11:14 | PT-IP ANOTE ---
Pt is too sleepy to awaken for mobility and sister states that pt did not sleep well last night. Pt can get up to chair with nsg for meals as she tolerates. Con't PT efforts next date.
[2025-04-05 12:00] VITALS: BP 117/66; PULSE 96; RESP 16; TEMP 36.5; O2SAT 94
--- NOTE | 2025-04-15 19:36 | P.DS_ITS ---
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 Patient was admitted from the emergency department placed on insulin and dextrose infusion with resolution of her DKA in 12 hours. Patient admitted to the floor and started on Novolin 70 30 fixed dose insulin 10 units subQ twice daily with sliding scale insulin as needed for simplicity and affordability hemoglobin A1c is pending Review of systems: Patient has felt markedly fatigued with weak muscles very poor motivation and poor appetite Physical exam: Disheveled poorly kempt poorly groomed HEENT: Poor dentition Neck no JVD Heart rate and rhythm regular Lungs clear from apices to bases Abdomen nontender bowel sounds present nondistended Extremities no edema but with muscle wasting Skin with multiple excoriations at various stages of healing Neuro nonfocal but impaired cognition Hospital course: Patient's mentation and blood sugars improved with switch to Doppler and 70 30 and titrated up to 20 units subQ b.i.d. for fair glycemic control further adjustments will be made at [facility] she [facility] be discharged 04/05: PATIENT DISCHARGED ON NOVOLIN 70/30 25 UNITS SUBQ B.I.D. Review of systems: Slept well overnight No headache diplopia No difficulty swallowing No nausea vomiting No chest pain shortness for breath palpitations The paresthesia paresis Weakness improved Physical exam: Better groomed today HEENT: Poor dentition Neck no JVD Heart rate and rhythm regular Lungs clear from apices to bases Abdomen nontender bowel sounds present nondistended Extremities no edema but with muscle wasting Skin with multiple excoriations at various stages of healing Neuro nonfocal but impaired cognition Assessment and plan: DKA in a type 2 diabetic probable loss of insulin production * DKA resolved discontinued insulin and dextrose infusion replace potassium orally * Novolin 70/30 10 units subQ twice daily and sliding scale insulin DVT prophylaxis * Lovenox Code status: * Full code 35 minutes were involved in managing the discharge of this patient Discharge Providers Provider Date of admission: 04/02/25 03:42 Discharge Date: 04/05/25 Consults: 04/02/25 14:12 Consult to MANAGER DELIVERY - Gambling Counsellor Routine Comment: Gambling Counsellor Consult needed for:: Unable to care for self Comment: PT'S DAUGHTER STATES PT IS UNABLE TO CARE FOR HERSELF AND IS NOT WANTING TO CARE FOR HER. STATES SHE THROWS ALL HER PILLS AWAY. REQUESTING HOME HEALTH OR ANY HELP. 04/04/25 09:10 Consult to Occupational Therapy Evaluate & Treat Comment: Physician Instructions: Evaluate and treat Consult to Physical Therapy Evaluate & Treat Comment: Physician Instructions: Evaluate and Treat Discharge provider: Osbaldo Burris MD Exam Vital Signs (past 8 hours): Oxygen Delivery Method Room Air Oxygen Flow Rate 0 Objective Labs 04/03/25 05:34 04/03/25 05:34 [facility] Medical History (Updated 04/02/25 @ 07:35 by Mehrdad Bryant MD) Diabetes Social History household members: significant other Smoking Status: Former smoker alcohol intake: former Discharge Plan Discharge Plan Patient Disposition: SNF Transfer to: [facility] Discharge orders & Medications Prescriptions: New losartan 50 mg Tablet 50 mg PO DAILY Qty: 60 0RF Humulin 70/30 U-100 Insulin 100 unit/mL (70-30) Suspension 20 unit SUBCUT BIDAC Qty: 20 0RF Humulin R Regular U-100 Insuln 100 unit/mL Solution 0 unit SUBCUT ACHS Qty: 20 0RF Humulin 70/30 U-100 Insulin 100 unit/mL (70-30) Suspension 25 unit SUBCUT BIDAC Qty: 20 0RF Diet/Activity/Treatments Diet: Carb-consistent/Diabetic [facility] Reason for rehabilitation: Recovery r/t decondition Rehab type: Physical therapy and Occupational therapy Visit Report/Discharge Packet Stand Alone Forms: Patient Portal/API
== END 2025-04-05 13:44 | DRG 637 ==
LOC: ED 04-02 03:42 → AC 04-02 03:43 → ICU 04-02 12:19 → AC 04-04 12:41
PROVIDERS: Admitting Provider Internal Medicine; Emergency Provider Family Medicine; Referring Provider Family Medicine; Visit Provider Internal Medicine
DX: E11.10 Type 2 diabetes mellitus with ketoacidosis without coma (principal); G93.41 Metabolic encephalopathy; E11.65 Type 2 diabetes mellitus with hyperglycemia; I95.9 Hypotension, unspecified; F03.90 Unspecified dementia, unspecified severity, without behavioral disturbance, psychotic disturbance, mood disturbance, and anxiety; I10 Essential (primary) hypertension; R00.0 Tachycardia, unspecified; W19.XXXA Unspecified fall, initial encounter; Y93.01 Activity, walking, marching and hiking; Z74.8 Other problems related to care provider dependency; Z79.84 Long term (current) use of oral hypoglycemic drugs; Z87.891 Personal history of nicotine dependence
CPT/HCPCS: 36415; 70450; 70496; 70498; 71045; 72125; 72192; 80048; 80053; 81001; 81003; 81015; 82009; 82550; 82805; 82962; 83605; 83690; 84145; 84484; 85025; 87040; 87086; 93005; 93010; 96365; 96366; 96367; 96368; 96372; 96375; 97162; 97166; 99285; J0131; J0360; J1650; J1885; J2405; J2470; J2765; Q9967